=== PATIENT | male | born 1930 | race Caucasian/White ===

== ENCOUNTER 2016-04-08 23:24 | Inpatient (IN) | payer MEDICARE ==
[~2016-04-08] VITALS: Ht 162.6 cm; Wt 71.3 kg
[2016-04-09 00:08] LABS: APTT 27.9 SECONDS (22.8-39.4); INR 1.13 (0.85-1.17); PROTIME 14.4 SECONDS (11.6-15.0)
[2016-04-09 00:10] LABS: BASOPHILS 0.8 % (0.0-2.0); EOSINOPHILS 3.6 % (0-7); HEMATOCRIT 39.5 % (42.0-54.0); HEMOGLOBIN 12.5 g/dL (13.5-17.5); MCH 31.5 pg (26.0-34.0); MCHC 31.6 g/dL (31.0-37.0); MCV 99.5 fL (80.0-100.0); MEAN PLATELET VOLUME 11.4 fL (7.4-10.4); MONOCYTES 11.6 % (2-11); PLATELET COUNT 124 10x3/uL (130-400); RBC 3.97 10x6/uL (4.20-6.10); RDW 13.3 % (11.5-14.5)
[2016-04-09 00:15] LABS: ALBUMIN 3.5 g/dL (3.4-5.0); ALKALINE PHOSPHATASE 65 U/L (46-116); ALT (SGPT) 14 U/L (10-68); BILIRUBIN - TOTAL 0.43 mg/dL (0.2-1.3); CALC OSMOLALITY 284 mosm/kg (275-300); CALCIUM 9.4 mg/dL (8.5-10.1); CARBON DIOXIDE 31.3 mmol/L (21.0-32.0); CHLORIDE - SERUM 105 mmol/L (98-107); CREATININE - SERUM 1.2 mg/dL (0.6-1.3); GLUCOSE 89 mg/dL (74-106); PROTEIN - SERUM 7.3 g/dL (6.4-8.2); SODIUM 142 mmol/L (136-145); UREA NITROGEN 22 mg/dL (7-18); eGFR NON AFRICAN AMERICAN 61 mL/min (90-120)
[2016-04-09 00:22] LABS: AMYLASE - SERUM 50 U/L (25-115); CREATINE KINASE 53 UL (21-232); LIPASE 305 U/L (73-393); PRO BNP 2574 pg/mL (0-450)
[2016-04-09 00:23] LABS: TROPONIN-I < 0.017 ng/mL (0.000-0.060)
[2016-04-09 00:42] LABS: APPEARANCE CLEAR (CLEAR); BILIRUBIN NEGATIVE (NEGATIVE); COLOR YELLOW (YELLOW); GLUCOSE NEGATIVE (NEGATIVE); KETONE NEGATIVE (NEGATIVE); LEUKOCYTE ESTERASE NEGATIVE (NEGATIVE); NITRITE NEGATIVE (NEGATIVE); PROTEIN NEGATIVE (NEGATIVE); SPECIFIC GRAVITY 1.015 (1.005-1.020); UROBILINOGEN NORMAL (NORMAL)
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
[2016-04-09 05:43] VITALS: BP 136/75; BMI 27.0
[2016-04-09 06:32] LABS: BASOPHILS 0.5 % (0.0-2.0); EOSINOPHILS 3.6 % (0-7); HEMATOCRIT 37.2 % (42.0-54.0); LYMPHOCYTES 45.8 % (15-50); MCH 31.6 pg (26.0-34.0); MCHC 32.3 g/dL (31.0-37.0); MCV 97.9 fL (80.0-100.0); MEAN PLATELET VOLUME 10.7 fL (7.4-10.4); MONOCYTES 11.5 % (2-11); NEUTROPHILS 38.6 % (40-80); PLATELET COUNT 108 10x3/uL (130-400); RDW 13.2 % (11.5-14.5); WBC 3.9 10x3/uL (4.8-10.8)
[2016-04-09 06:49] LABS: HEMOGLOBIN A1C 5.3 % (4.8-6.0)
[2016-04-09] MEDS ORDERED: NAMENDA5 MG (06:53)
[2016-04-09] MEDS ORDERED: ELIQUIS2.5 MG (06:53)
[2016-04-09 06:55] LABS: CHOL - HDL RATIO 2.8 ratio (2.3-4.9); LDL-HDL RATIO 1.6 ratio (1.5-3.5); THYROID STIMULATING HORMONE 2.04 uIU/mL (0.36-3.74)
[2016-04-09 10:51] VITALS: BP 147/81
--- NOTE | 2016-04-09 16:18 | NUR ---
RECEIVED THIS AM IN BED.ASSISTED UP TO WHEELCHAIR AND TO BATHROOM.URINATED WITHOUT DIFFICULTY.PULL UP OBSERVED TO BE WET,CLEAN PULL UP PUT ON.IS ORIENTED TO SELF ONLY.ATTEMPT TO REORIENT TO TIME AND PLACE WITH POOR RESPONSE.NO SIGNS OF AGGRESSION OR EXIT SEEKING OBSERVED.WILL CONTINUE WITH PLAN OF CARE,MONITOR FOR CHANGES AND SAFETY.
--- NOTE | 2016-04-09 23:45 | NUR ---
PATIENT RECIEVED IN DINING ROOM, INTERACTING WITH PEER. ORIENTED TO PERSON AND TIME. PATIENT REORIENTED. HE DOESN'T UNDERSTAND WHY HE'S HERE. DENIES CONFUSION. PLEASANT, CALM AND COOPERATIVE. CONTINUE TO MONITOR, CONTINUE PLAN OF CARE.
[2016-04-10 08:12] VITALS: BP 153/74
[2016-04-10] MEDS ORDERED: ELIQUIS2.5 MG PO (14:24)
[2016-04-10] MEDS ORDERED: WELLBUTRIN XL150 M1 PO (14:24)
[2016-04-10] MEDS ORDERED: COREG12.5 MG PO (14:27)
--- NOTE | 2016-04-10 15:55 | NUR ---
RECEIVED THIS AM IN BED,ASSISTUP TO WHEELCHAIR PER ONE.IS ORIENTED TO SELF ONLY.COMPLIANT WITH MEDS AND STAFF.PROPELLS SELF IN WHEELCHAIR.NO AGGRESSION OBSERVED.WILL CONTINUE WITHPLAN OF CARE,MONITOR FOR CHANGES AND SFETY.
--- NOTE | 2016-04-10 20:21 | NUR ---
RECEIVED IN DAYROOM. SETTING IN CHAIR AT TABLE WATCHING TV. CALM AND COOPERATIVE WITH CARE AND ASSESSMENT. SOCIAL WITH A PEER AT TIMES. REORIENT NEEDED. REINFORCE FALLS SAFETY. CONTINUES TO SET QUIETLY IN WHEELCHAIR. CONTINUE PLAN OF CARE
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
[2016-04-10 21:45] VITALS: BP 128/75
[2016-04-11 06:14] LABS: RAPID PLASMA REAGIN Non Reactive (Non Reactive)
[2016-04-11 08:20] LABS: VITAMIN D 25 HYDROXY 42.7 ng/mL (30.0-100.0)
[2016-04-11 09:17] LABS: FOLATE (FOLIC ACID) - SERUM 18.4 ng/mL (>3.0)
[2016-04-11 09:21] VITALS: BP 137/61
[2016-04-11 10:40] VITALS: Ht 162.6 cm; Wt 71.3 kg
--- NOTE | 2016-04-11 15:38 | NUR ---
(B)RECEIVED PATIENT SITTING IN A CHAIR AT THE NURSE'S STATION. ORIENTED TO SELF ONLY. DELUSIONAL AND HAS FLIGHT OF IDEAS AND IS UNABLE TO COMPLETE A THOUGHT AEB "WHEN NIGHT NOW DEPENDS FOR THE TIME BROUGHT HERE. TWO MEN CAME TO THE HOUSE AND STARTED TALKING IMMEDIATELY. VERY NICE. CHECK ON PEOPLE AND CHECK ON OTHER'S HEALTH." BELIEVES HIS AND A FRIEND ARE COMING TO TAKE HIM HOME. CONFUSED. COOPETATIVE. (I)ADMINISTER MEDS AND MONITOR COMPLIANCE. REORIENT NEEDED. (R)MED COMPLIANT. POOR REORIENTATION DUE TO IMPAIRED ABILTIY TO COMPREHEND, PROCESS AND MAINTAIN INFORMATION. (P)CONTINUE POC AND MAINTAIN FALL PRECAUTIONS.
[2016-04-11 19:39] VITALS: BP 120/64
--- NOTE | 2016-04-11 20:21 | NUR ---
RECEIVED IN DAYROOM. SETTING IN WHEELCHAIR AT TABLE WITH STAFF AND PEERS.SOCIALIZING AT TIMES. CALM AND COOPERATIVE WITH CARE AND ASSESSMENTS. NO SIGNS OF AGGRESSION. CONTINUES TO SET QUIETLY AT TABLE WITH STAFF AND PEERS. CONTINUE PLAN OF CARE
[2016-04-12 08:00] VITALS: BP 114/58
--- NOTE | 2016-04-12 10:59 | PN ---
PATIENT:SCOTT MCKNIGHT MEDICAL RECORD: [id number] LOCATION:HIRAM Dawson ADMISSION DATE: 04/09/16 PROGRESS NOTE DATE OF SERVICE: 04/11/2016 SUBJECTIVE: No new complaint is noted. OBJECTIVE: The patient did undergo neuro psych neuropsychological testing. He scored only 9/30 on the [facility] Mental Status exam indicating a very significant level of dementia. He will need 24-hour daycare. On exam, mood is euthymic, affect is shallow. Speech is rambling and garrulous. Content of thought exhibits delusional ideation secondary to sensorium changes. Sensorium is unchanged overall. ASSESSMENT: No change in diagnosis. PLAN: 1. Maintain current medications. 2. Continue supportive therapy. TRANSINT:[id number] Voice Confirmation ID: [id number] DOCUMENT ID: [id number] SCOTT FLYNN III, MD at 1059 CC: [id number] DICTATION DATE: 04/11/16 1223 REAL ESTATE DEVELOPER: 04/11/16 2220 ADM IN [place] [address] [place] [id number]
--- NOTE | 2016-04-12 14:54 | NUR ---
RECEIVED THIS AM SITTING IN WHEELCHAIR IN HALLWAY AT NURSE STATION.IS ORIENTED TO SELF ONLY.NO AGGRESSION OBSERVED.COMPLIANT WITH MEDS.PROPELLS SELF IN WHEELCHAIR.SITS QUIETLY MOST OF THE TIME BUT DOES SOCIALIZE AT TIMES WITH PEERS.WILL CONTINUE WITH PLAN OF CARE,MONITOR FOR CHANGES AND SAFETY.
[2016-04-12 20:00] VITALS: BP 110/64
--- NOTE | 2016-04-13 03:45 | NUR ---
PATIENT IN WHEELCHAIR IN DAYROOM. ORIENTED TO SELF, AND HAS SOME CONFUSION ON SITUATION. PATIENT REORIENTED. VERY AMIABLE, FOLLOWS DIRECTIONS AND CALM. HASN'T ANY AGITATION. CONTINUE TO MONITOR, CONTINUE PLAN OF CARE
[2016-04-13 08:14] VITALS: BP 117/59
--- NOTE | 2016-04-13 09:00 | PN ---
PATIENT:SCOTT MCKNIGHT MEDICAL RECORD: [id number] LOCATION:HIRAM Dawson ADMISSION DATE: 04/09/16 PROGRESS NOTE DATE OF SERVICE: 04/12/2016 SUBJECTIVE: No new complaint. OBJECTIVE: The patient has shown improvement in behavior, representatives from [facility] have ____ decision on placement is pending. On exam, mood is euthymic. Affect is bland. Speech is tangential. Content of thought is negative for overt psychosis. Sensorium is unchanged. ASSESSMENT: No change in diagnosis. PLAN: 1. Continue current medications. 2. Continue supportive therapy. TRANSINT:[id number] Voice Confirmation ID: [id number] DOCUMENT ID: [id number] SCOTT FLYNN III, MD at 0900 CC: [id number] DICTATION DATE: 04/12/16 1204 CHILD DEVELOPMENT PROFESSOR: 04/12/16 1821 ADM IN [facility] [address] [place] [address]
--- NOTE | 2016-04-13 18:06 | NUR ---
(B)RECEIVED PATIENT SITTING IN A CHAIR AT THE NURSE'S STATION. ORIENTED TO SELF ONLY. POOR INSIGHT INTO THE REASON FOR HOSPITALIZATION. PREOCCUPIED WITH SEEING HIS AND THINKING HE IS GOING BACK HOME. SOCIAL WITH PEERS. CALM AND COOPERATIVE WITH STAFF. SHORT THERM MEMORY IMPAIRED RESULTING IN PATIENT ASKING THE SAME THINGS OVER OR REQUIRING INFORMATION BE REPEATED. (I)ADMINISTER MEDS AND MONITOR COMPLIANCE. REORIENT NEEDED. (R)MED COMPLIANT. POOR REORIENTATION DUE TO IMPAIRED ABILITY TO COMPREHEND, PROCESS AND MAINTAIN INFORMATION. (P)CONTINUE POC AND MAINTAIN FALL PRECAUTIONS.
[2016-04-13 19:30] VITALS: BP 133/83
--- NOTE | 2016-04-13 21:05 | NUR ---
B) Talked of how much he enjoyed his visit from his today. Thankful for staff and thankful for the nice ladies who are his peers here. Denies feeling depressed or angry, no aggression displayed. Noted to have fading bruise on back of left hand and dry skin on his scalp. Propels self around unit in wheelchair. I) Administer medications as ordered, redirect and reorient PRN. R) Confused, oriented to person, pleasant mood, compliant with medications. P) Continue to monitor per plan of care.
[2016-04-14 09:40] VITALS: BP 124/58
--- NOTE | 2016-04-14 11:20 | NUR ---
Alert and oriented to name and some what to place, has no insight to reason for hospitalization. Compliant with medications. Self propels in W/C, safety maintained. No delusions or inappropriate behavior. Calm, pleasant and cooperative. Continue with plan of care.
[2016-04-14 19:30] VITALS: BP 111/49
--- NOTE | 2016-04-15 02:48 | NUR ---
B) Recieved sitting in a wheelchair in the day room, alert and oriented to self, calm and cooperative with staff, I) Admionistered perscribed medications, redirected as needed, R) Medication compliant, friendly when spoken to, responds faye. P) Continue plan of care, continue to monitor.
[2016-04-15 08:00] VITALS: BP 117/56
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
[2016-04-15 19:30] VITALS: BP 127/70
--- NOTE | 2016-04-16 03:00 | NUR ---
B) Recieved sitting in a wheelchair in the day room, alert and oriented to self, speaks when spoken to, cooperative with staff, quiet and keeps to himself. I) Administered perscribed medications, R) Medication compliant, no behaviors or outburst this shift, P) Continue plan of care.
[2016-04-16 07:00] VITALS: BP 106/63
--- NOTE | 2016-04-16 18:42 | NUR ---
PT IS RECEIVED SITTING IN CHAIR IN [place] IN FRONT OF NURSE STATION. PT IS ALERT AND ORIENTED TO PERSON AND PLACE. PT DENIES PAIN. NO HALLUCINATIONS OR DELUSIONS ARE NOTED OR REPORTED. NO AGGRESSION IS NOTED. PT IS SOCIAL AND PLEASANT WITH STAFF AND PEERS. PT IS COMPLIANT WITH MED'S AND CARE. SAFETY MEASURES ARE IMPLEMENTED. CONTINUE WITH PLAN OF CARE. WILL CONTINUE TO MONITOR.
[2016-04-16 19:30] VITALS: BP 196/87
--- NOTE | 2016-04-16 20:38 | NUR ---
RECEIVED IN DAYROOM. SITTING IN WHEELCHAIR AT TABLE WITH STAFF AND PEERS AT HIS SIDE. NOT SOCIALIZING. NO SIGNS OF AGGRESSION. CALM AND COOPERATIVE WITH CARE AND ASSESSMENTS. ENCOURAGE TO EXPRESS NEEDS. REMAINS SITIING CALMLY IN WHEEL CHAIR. CONTINUE PLAN OF CARE
[2016-04-17 08:39] VITALS: BP 122/69
--- NOTE | 2016-04-17 08:56 | PN ---
PATIENT:SCOTT MCKNIGHT MEDICAL RECORD: [id number] LOCATION:HIRAM Dawson ADMISSION DATE: 04/09/16 PROGRESS NOTE DATE OF SERVICE: 04/13/2016 SUBJECTIVE: No new complaint. OBJECTIVE: The patient is continuing to tolerate medication well. Behavior has improved considerably. On exam, mood is euthymic. Affect is bland. Speech is tangential. Content of thought is negative for clear-cut psychosis. Sensorium shows no change. ASSESSMENT: No change in diagnosis. PLAN: 1. Maintain current medications. 2. Continue supportive therapy. TRANSINT:[id number] Voice Confirmation ID: [id number] DOCUMENT ID: [id number] SCOTT FLYNN III, MD at 0856 CC: [id number] DICTATION DATE: 04/13/16 1142 TOWNSHIP CLERK: 04/13/16 1904 ADM IN [facility] [address] [place] [address]
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
[2016-04-17] MEDS ORDERED: TRAVATAN 0.004% EACH EYE (12:15)
[2016-04-17] MEDS ORDERED: EYE EACH EYE (12:15)
[2016-04-17] MEDS ORDERED: TRUSOPT 2 % OPT10 ML EACH EYE (12:15)
--- NOTE | 2016-04-17 13:41 | PN ---
PATIENT:SCOTT MCKNIGHT MEDICAL RECORD: [id number] LOCATION:HIRAM Hannah112 ADMISSION DATE: 04/09/16 PROGRESS NOTE DATE OF SERVICE: 04/14/2016 SUBJECTIVE: The patient's case was discussed with staff. He has no new complaint. OBJECTIVE: The patient is in good behavioral control with limited insight about his condition. He has not been aggressive today. ASSESSMENT: No change in diagnoses. PLAN: The patient will be maintained on current medicines and therapies. His long-term prognosis is guarded. TRANSINT:[id number] Voice Confirmation ID: [id number] DOCUMENT ID: [id number] DANA FUENTES MD at 1341 CC: [id number] DICTATION DATE: 04/14/16 1411 ADVERTISING SALES CONSULTANT: 04/14/16 2040 ADM IN [place] [address] [place] [address]
--- NOTE | 2016-04-17 13:58 | NUR ---
SW SPOKE WITH PT'S , MAGALI, ABOUT DISCHARGE PLANS FOR TOMORROW. SW STATED RN WOULD GO OVER MEDICATION REGIMEN WITH DISCHARGE PAPERWORK. MAGALI STATED SHE DID NOT WANT RUTH AT HOME BECAUSE PT RECIEVES OUTPATIENT THERAPY AT [facility]. SHE STATED SHE WOULD CALL AND NOTIFY STAFF HE IS BEING DISCHARGED WHEN SW ALSO TO DO SO. PT'S PCP IS DR. PERALTA AND [facility] IS HIS PHARMACY. PT'S STATED SHE WOULD PICK HIM UP BETWEEN 4 AND 430 DUE TO APPOINTMENT SHE HAS AT THE HOSPITAL BEING AT 3. PT'S VERBALIZED UNDERSTANDING AND APPRECIATION OF SERVICES.
[2016-04-17 19:20] VITALS: BP 127/66
--- NOTE | 2016-04-17 19:56 | NUR ---
RECEIVED IN DAYROOM. SITTING IN WHEELCHAIR WITH PEERS AT HIS SIDE. SOCIALIZING AT TIMES. CALM AND COOPERATIVE WITH CARE AND ASSESSMENTS. NO SIGNS OF AGGRESSION. ENCOURAGE TO EXPRESS NEEDS. CONTINUES TO EXPRESS NEEDS. CONTINUE PLAN OF CARE
[2016-04-18 08:38] VITALS: BP 113/66
--- NOTE | 2016-04-18 09:57 | NUR ---
Nutrition Follow Up: Chart reviewed. Pt is eating 71% meal avg on a Regular diet. +BM 04/10/16 - no BM x 8 days. No new wt, labs to assess. Meds noted. Pt with good po intake at this time. Rec continue current diet. Rec consider bowel regimen as pt has not had BM in [address] following.
--- NOTE | 2016-04-18 10:30 | NUR ---
Alert and oriented to name and some what to place. Has no insight to reason for hospitalization. Taught on discharge back home today. Verbalized understanding. No aggression or delusions. Calm and pleasant in good behavior control. Discharge information faxed to Alex at home and Dr. Dean office with appointment made for follow up. Compliant with medications. Continuw with plans to discharge today.
--- NOTE | 2016-04-18 15:40 | NUR ---
Patient ready for discharge, discharge instructions given to spouse as well as paper prescription for Namenda. Verbalized understanding. Patient discharged.
--- NOTE | 2016-04-19 10:02 | PN ---
PATIENT:SCOTT MCKNIGHT MEDICAL RECORD: [id number] LOCATION:HIRAM Hannah112 ADMISSION DATE: 04/09/16 PROGRESS NOTE DATE OF SERVICE: 04/17/2016 SUBJECTIVE: No new complaint. OBJECTIVE: The patient continues to be cooperative and quiet. Case management has been in contact with his , who does wish to have him come home. We will be making a recommendation for home health to assist the patient at home. The patient's is aware that the patient has been evaluated by [facility]. On exam, mood is pleasant and for the most part euthymic. Affect is bland. Speech is rather tangential. Content of thought is negative for overt psychosis. Sensorium shows no change. ASSESSMENT: No change in diagnosis. PLAN: 1. Maintain all current medications. 2. Anticipate discharge tomorrow morning. TRANSINT:[id number] Voice Confirmation ID: [id number] DOCUMENT ID: [id number] SCOTT FLYNN III, MD at 1002 CC: [id number] DICTATION DATE: 04/17/16 1212 MOTION DESIGNER: 04/17/16 1851 DIS IN 04/18/16 [facility] [address] [place] [id number]
--- NOTE | 2016-04-19 16:33 | PN ---
PATIENT:SCOTT MCKNIGHT MEDICAL RECORD: [id number] LOCATION:HIRAM HannahNancy ADMISSION DATE: 04/09/16 PROGRESS NOTE DATE OF SERVICE: 04/18/2016 SUBJECTIVE: The patient's case was discussed with staff. He has no new complaint. OBJECTIVE: The patient is in good behavioral control with limited insight about his condition. He tolerates his medicines well. ASSESSMENT: No change in diagnoses. PLAN: Current medicines and therapies have been reviewed and will be maintained. Long-term prognosis is guarded. TRANSINT:[id number] Voice Confirmation ID: [id number] DOCUMENT ID: [id number] DANA FUENTES MD at 1633 CC: [id number] DICTATION DATE: 04/18/16 1519 NAIL GALVANIZER: 04/18/16 1856 DIS IN 04/18/16 [facility] [address] [place] [address]
--- NOTE | 2016-04-20 09:59 | DS ---
PATIENT:SCOTT MCKNIGHT :28 MEDICAL RECORD: [id number] DISCHARGE SUMMARY ADMISSION DATE: 04/09/16 DISCHARGE DATE: 04/18/16 DATE OF ADMISSION: 04/09/2016 DATE OF DISCHARGE: 04/18/2016 HISTORY: First custodial admission for this 85-year-old white male. This patient was brought from [place]. He had been showing increasing confusion and agitation over the last several weeks. The patient's had become frightened about his behavior. Because of worsening cognition and agitated and occasionally aggressive behavior the patient was admitted. For further details, please see previously dictated history. COURSE IN THE HOSPITAL: The patient was seen in consultation by Dr. Pelayo who noted the presence of hypertension and history of cardiac arrhythmias. The patient was treated fairly conservatively. During the course of the hospitalization, he was treated with Zoloft 25 mg daily (this was previous medication), Coreg 12.5 mg daily, Eliquis 2.5 mg b.i.d., travoprost eye drops, Namenda 10 mg b.i.d. The patient did well over the course of the hospitalization, he showed a good resolution of his agitation and delusional ideation abated by the time of discharge. The patient was felt to be stable enough to return to the home environment with home health assistance. FINAL DIAGNOSES: AXIS I: Vascular dementia. AXIS II: No diagnosis. AXIS III: Hypertension, cardiac arrhythmias. AXIS IV: Moderate. AXIS V: 40. PLAN: 1. The patient is discharged on current medications. 2. Diet and activities as tolerated. 3. Follow up with home health and through primary care physician. TRANSINT:[id number] Voice Confirmation ID: [id number] DOCUMENT ID: [id number] SCOTT FLYNN III, MD at 0959 CC: [id number] DICTATION DATE: 04/19/16 1048 IN FILE OPERATOR: 04/20/16 0227 DIS IN 04/18/[address] [address]
== END 2016-04-18 15:40 | disposition home or self-care (01) | DRG 884 ==
LOC: D.ER 23:24 → D.PSYCH 04-09 01:57
PROVIDERS: Family Medicine; ADMIT Psychiatry & Neurology Psychiatry
DX: F03.91 Unspecified dementia, unspecified severity, with behavioral disturbance (principal); I10 Essential (primary) hypertension; Z95.0 Presence of cardiac pacemaker; Z91.81 History of falling

== ENCOUNTER 2016-07-29 17:06 | Inpatient (IN) | payer MEDICARE ==
[~2016-07-29] VITALS: Ht 170.2 cm; Wt 74.8 kg
--- NOTE | ~2016-07-29 | OP ---
PATIENT NAME: SCOTT MCKNIGHT MEDICAL RECORD: [id number] :28 LOCATION:D.MS Hannah2238 ADMISSION DATE:07/31/16 SURGEON: TOMAS HARRELL MD DATE OF OPERATION: 08/04/2016 PREOPERATIVE DIAGNOSES: 1. Acute kidney injury. 2. Congestive heart failure. 3. Fever of unknown origin. 4. Hypertension. 5. Cardiac arrhythmia. 6. Advanced dementia. 7. Diminished p.o. intake. POSTOPERATIVE DIAGNOSES: 1. Acute kidney injury. 2. Congestive heart failure. 3. Fever of unknown origin. 4. Hypertension. 5. Cardiac arrhythmia. 6. Advanced dementia. 7. Diminished p.o. intake. PROCEDURE: PEG tube placement. SURGEON: Tomas Harrell MD REPORT OF PROCEDURE: An Olympus endoscope was advanced through the mouth and esophagus. We found the area on the antrum of the stomach to house our PEG tube. The stomach was then prepped with Betadine ointment. A total of 5 cc of 1% lidocaine with epinephrine was infused into the surrounding tissues. A skin incision was then made with an 11 blade. An Angiocath needle was inserted through the abdominal wall into the gastric lumen. A wire was advanced through this Angiocath and grasped with the snare. This wire was pulled through the mouth and esophagus and affixed to the PEG tube. This PEG tube was pulled through the mouth and esophagus and through the abdominal wall until it rested in good position at 3 cm at the skin. The endoscope was readvanced into the stomach and was noted to be in good position in the antrum of the stomach with no sign of any bleeding. This PEG tube was affixed into position. COMPLICATIONS: None. CONDITION: Stable. ANESTHESIA: TIVA. BLOOD LOSS: Minimal. TRANSINT:[id number] Voice Confirmation ID: [id number] DOCUMENT ID: [id number] OPERATIVE REPORT [id number] SCOTT MCKNIGHT TOMAS HARRELL MD CC: [id number] DICTATION DATE: 08/04/16924 SOAKER SODA WORKER: 08/04/16 1702 ADM IN [facility] [address] [place] [address]
--- NOTE | ~2016-07-29 | EC ---
PATIENT:SCOTT MCKNIGHT DATE OF SERVICE: 07/29/16 SEX: M MEDICAL RECORD: [id number] DATE OF : 29 LOCATION:D.MS Melara AGE OF PATIENT: 85 ADMISSION DATE: 07/31/16 REFERRING PHYSICIAN: INTERPRETING PHYSICIAN: ERICA HAIDER MD ECHOCARDIOGRAM REPORT ECHO CHARGES 4 ECHO COMPLETE CLINICAL DIAGNOSIS: POSSIBLE CHF ECHOCARDIOGRAPHIC MEASUREMENTS (adult normal given) AC root (d.<3.7cm) 3.4 LV Septum d (<1.2 cm> 1.3 Valve Excursion 2.2 LV Septum (systole) 1.9 Left Atria (s.<4.0cm> 3.3 LVPW d(<1.2cm) 1.6 RV (d.<2.3cm) 2.8 LVPW (sytole) 2.3 LV diastole(<5.6CM) 3.8 MV E-F(>70mm/sec) LV systole 2.3 LVOT Diameter 1.9 MV exc.(>10mm) Est.ejection fraction (50-75%) Pericardial Effusion N DOPPLER: LVIT A 34.0 E 70.0 LA RVSP 40.0 LVOT 80.0 AOP1/2T 1049. Asc. Ao 258 RVOT 73.0 RA PA 87.0 AV Gradient Peak 27.0 AV Mean 15.1 AV Area 0.8 MV Gradient Peak 3.0 MV Mean 1.0 MV Area COMMENTS: Grievance And Appeals Coordinator: Aidee WYLIEOE Global Transportation Manager:1 Dr. Haider TAPE# PACS DATE OF SERVICE: 07/31/2016 Echocardiogram FINDINGS: 1. Left ventricular chamber size is within normal limits. Left ventricular systolic function is mildly depressed. Overall ejection fraction is in the 40% range. There is mild global hypokinesis throughout all segments with no discrete wall motion abnormalities present. 2. Left atrium is within normal limits at 3.3 cm. Right atrium and right ECHOCARDIOGRAM REPORT [id number] SCOTT MCKNIGHT ventricle chamber sizes are mildly dilated. 3. Valvular structures: Aortic valve demonstrates moderate calcific aortic stenosis. Valve area calculates to 0.8 cm square and there is a gradient of 27 mm across the valve. The remaining valvular structures have normal structure and motion. 4. Doppler interrogation elsewise reveals moderate mitral regurgitation, moderate tricuspid regurgitation, no other valvular insufficiency or stenosis. Pulmonary systolic pressure is estimated at 40 mmHg. 5. No evidence of pericardial effusion or left ventricular thrombus. TRANSINT:[id number] Voice Confirmation ID: [id number] DOCUMENT ID: [id number] 08/09/2016 Edited to correct date of service, dmm. ERICA HAIDER MD CC: [id number] DICTATION DATE: 07/31/16 1142 WORKFORCE MANAGER: 07/31/16 1654 DIS IN 08/07/16 [place] [id number] [place] [id number]
[~2016-07-29 17:06] MED LIST: COREG12.5 MG PO; ELIQUIS2.5 MG; ELIQUIS2.5 MG PO; EYE EACH EYE; NAMENDA5 MG; TRAVATAN 0.004% EACH EYE; TRUSOPT 2 % OPT10 ML EACH EYE; WELLBUTRIN XL150 M1 PO
[2016-07-29 18:57] LABS: BASOPHILS 0.4 % (0-2); EOSINOPHILS 0.2 % (0-7); HEMATOCRIT 40.6 % (42.0-54.0); HEMOGLOBIN 13.1 g/dL (13.5-17.5); LYMPHOCYTES 21.5 % (15-50); MCH 32.3 pg (26.0-34.0); MCHC 32.3 g/dL (31.0-37.0); MCV 100.2 fL (80.0-100.0); MEAN PLATELET VOLUME 11.1 fL (7.4-10.4); MONOCYTES 8.4 % (2-11); NEUTROPHILS 69.5 % (40-80); PLATELET COUNT 121 10x3/uL (130-400); RBC 4.05 10x6/uL (4.20-6.10); RDW 13.1 % (11.5-14.5)
[2016-07-29 19:07] LABS: APPEARANCE CLEAR (CLEAR); BILIRUBIN NEGATIVE (NEGATIVE); COLOR YELLOW (YELLOW); GLUCOSE NEGATIVE (NEGATIVE); KETONE NEGATIVE (NEGATIVE); LEUKOCYTE ESTERASE NEGATIVE (NEGATIVE); NITRITE NEGATIVE (NEGATIVE); PROTEIN 1+ mg/dL (NEGATIVE); SPECIFIC GRAVITY 1.015 (1.005-1.020); UROBILINOGEN NORMAL (NORMAL)
[2016-07-29 19:11] LABS: ALBUMIN 3.5 g/dL (3.4-5.0); ANION GAP 12.9 mmol/L (8-16); BILIRUBIN - TOTAL 0.7 mg/dL (0.2-1.3); CALCIUM 8.7 mg/dL (8.5-10.1); CARBON DIOXIDE 29.6 mmol/L (21.0-32.0); CREATININE - SERUM 1.6 mg/dL (0.6-1.3); POTASSIUM - SERUM 4.5 mmol/L (3.5-5.1); PROTEIN - SERUM 7.3 g/dL (6.4-8.2)
[2016-07-29 19:14] LABS: BACTERIA FEW /hpf (NONE SEEN); EPITHELIAL CELLS 0-5 /hpf (0-5); MUCUS <1+ /lpf (NONE SEEN); RED CELLS - URINE 0-5 /hpf (0-5); WHITE CELLS - URINE 0-5 /hpf (0-5)
[2016-07-30] MEDS ORDERED: COLACE100 MG PO (00:49)
[2016-07-30] MEDS ORDERED: NAMENDA XR28 MG PO (00:51)
[2016-07-30] MEDS ORDERED: TRAVATAN Z2.5 ML EACH EYE (00:51)
[2016-07-30] MEDS ORDERED: BUPROPION XL150 MG PO (00:52)
[2016-07-30] MEDS ORDERED: SEROQUEL50 MG PO (00:53)
[2016-07-30 03:44] VITALS: BP 151/76; BMI 25.9
[2016-07-30 04:00] VITALS: BP 105/72
--- NOTE | 2016-07-30 07:00 | NUR ---
PT REC'D FROM [facility]. RESTING IN BED WITH EYES CLOSED. ALERT TO SELF ONLY. UNABLE TO REORIENT AT THIS TIME. LUNG SOUNDS TO L LOBES WITH CRACKLES THROUGHOUT. DIMINISHED TO RLL. BOWEL SOUNDS ACTIVE X4 QUADRANTS. +2 PEDAL PULSES BILAT. BED LOW, CALL LIGHT IN REACH, DENIES NEEDS. CPOC.
[2016-07-30 07:14] LABS: BASOPHILS 0.3 % (0-2); EOSINOPHILS 0.3 % (0-7); HEMATOCRIT 36.8 % (42.0-54.0); HEMOGLOBIN 12.2 g/dL (13.5-17.5); LYMPHOCYTES 24.8 % (15-50); MCH 32.4 pg (26.0-34.0); MCHC 33.2 g/dL (31.0-37.0); MEAN PLATELET VOLUME 11.2 fL (7.4-10.4); NEUTROPHILS 65.6 % (40-80); PLATELET COUNT 107 10x3/uL (130-400); RBC 3.76 10x6/uL (4.20-6.10)
[2016-07-30 07:15] LABS: MCV 97.9 fL (80.0-100.0)
[2016-07-30 08:42] VITALS: BP 141/73
--- NOTE | 2016-07-30 09:50 | NUR ---
PARTIAL BED BATH AND LINEN CHANGE PROVIDED DUE TO INCONTINENCE OF URINE. TO TURNED TO R SIDE. BED LOW, CALL LIGHT IN REACH, DENIES NEEDS. CPOC.
[2016-07-30 11:36] VITALS: BP 117/72
--- NOTE | 2016-07-30 11:54 | NUR ---
Received notice this am that Adult Protective Services had called when the patient was in the ER last pm. APS contact is Katy Stuart and her number is [phone]. Katy reports that the facility patient was in [facility] is going to be investigated due to the condition the patient was in when EMS arrived. Katy stated that the patient is in the Memory Care Unit there were reports of concerns. The [facility] will be addressing the Concerns with the facility. The patient is not on a hold by APS and can be discharged when medically stable where his wishes for him to be discharged to. Katy reports the patient can return to [facility] if his wants him to return there. [facility] will address concerns at facility if patient returns there or not. Katy wants to be called if patient is discharged today but Katy said if patient is discharged on Sunday than she does not need to be called. She is only tong setter this weekend and the patient's APS worker will be from [facility]. Cm will continue to follow and will assist as needed with dc plans/needs. Nichole Dias RN, [facility] [phone]
--- NOTE | 2016-07-30 12:44 | NUR ---
SITTING UP IN BED AFTER STAFF ASSISTED WITH EATING LUNCH. ORIENTED TO SELF. NO TEMP TODAY. LUNGS WITH CRACKLES THROUGHOUT. DENIES NEEDS.
[2016-07-30 17:30] VITALS: BP 148/76
--- NOTE | 2016-07-30 18:52 | NUR ---
PT WITH PRODUCTIVE COUGH, CRACKLES THROUGHOUT L LUNG, AND DIMINISHED TO RLL. CXR SHOWED POSSIBLE CHF. DR. GAMINO NOTIFIED. HE STATED, "THE ER DID NOT CALL ME ABOUT THIS PT." NEW ORDERS REC'D. DR. GAMINO REQUESTED GRINDER MILL OPERATOR, SANDRA HAWK. THIS WAS PROVIDED. IVF TO PT TURNED OFF AT THIS TIME.
--- NOTE | 2016-07-30 19:35 | NUR ---
RECIEVED SHIFT REPORT. PT IS LYING IN BED. PT IS ALERT TO SELF ONLY AT THIS TIME. IV IS PATENT AND FLUIDS ARE RUNNING PER ORDER. SCD'S ON. PT REQUIRES ASSISTANCE TURNING IN BED FOR COMFORT AND SKIN CARE. PT DENIES ANY PAIN AT THIS TIME. NO NEEDS ARE VERBALIZED AT THIS TIME. WILL CONTINUE TO MONITOR. SIDE RAILS ARE UP X 2. BED IS IN LOWEST POSITION. JUAN DAVID MAT IS ON FOR SAFETY. CALL LIGHT IS WITHIN REACH.
[2016-07-30 20:00] VITALS: BP 168/85
--- NOTE | 2016-07-30 21:00 | NUR ---
SHIFT ASSESSMENT COMPLETED. PT STATUS REMAINS UNCHANGED FROM PREVIOUS. PT CLEANED UP FROM INCONTINENT EPISODE. NO NEEDS VOICED. WILL MONITOR. SIDE RAILS X 2. BED LOW. JUAN DAVID MAT ON. CALL LIGHT IN REACH.
[2016-07-31] VITALS: BP 150/74
[2016-07-31 04:00] VITALS: BP 155/80
[2016-07-31 05:21] LABS: BASOPHILS 0.2 % (0-2); EOSINOPHILS 0 % (0-7); HEMATOCRIT 38.6 % (42.0-54.0); HEMOGLOBIN 12.8 g/dL (13.5-17.5); IMMATURE GRANULOCYTES 0.2 % (0-5); LYMPHOCYTES 22.1 % (15-50); MCH 32.2 pg (26.0-34.0); MCHC 33.2 g/dL (31.0-37.0); MCV 97.2 fL (80.0-100.0); MEAN PLATELET VOLUME 11.6 fL (7.4-10.4); MONOCYTES 11.4 % (2-11); NEUTROPHILS 66.1 % (40-80); PLATELET COUNT 113 10x3/uL (130-400); RBC 3.97 10x6/uL (4.20-6.10); RDW 12.7 % (11.5-14.5)
[2016-07-31 05:29] LABS: WBC 5.7 10x3/uL (4.8-10.8)
[2016-07-31 05:52] LABS: ALBUMIN 3.2 g/dL (3.4-5.0); ALKALINE PHOSPHATASE 72 U/L (46-116); ALT (SGPT) 15 U/L (10-68); BILIRUBIN - TOTAL 0.61 mg/dL (0.2-1.3); CALC OSMOLALITY 276 mosm/kg (275-300); CALCIUM 8.6 mg/dL (8.5-10.1); CARBON DIOXIDE 27.5 mmol/L (21.0-32.0); CHLORIDE - SERUM 97 mmol/L (98-107); CKMB 0.8 U/L (0.0-3.6); CREATININE - SERUM 1.4 mg/dL (0.6-1.3); GLUCOSE 119 mg/dL (74-106); POTASSIUM - SERUM 3.7 mmol/L (3.5-5.1); PRO BNP 13885 pg/mL (0-450); PROTEIN - SERUM 7.1 g/dL (6.4-8.2); SODIUM 136 mmol/L (136-145); UREA NITROGEN 23 mg/dL (7-18); eGFR NON AFRICAN AMERICAN 51 mL/min (90-120)
--- NOTE | 2016-07-31 07:00 | NUR ---
PT REC'D FROM KAYA DOSS. RESTING IN BED WITH EYES CLOSED. NO SIGNS OF DISTRESS. RESP EVEN AND UNLABORED. EASILY AROUSED. REGULAR HEART RATE AND RHYTHM. TELEMETRY STICKERS REPLACED. LUNG SOUNDS DIMINISHED TO RLL AND CRACKLES NOTED THROUGHOUT L LUNG. ALERT TO SELF ONLY. UNABLE TO REORIENT AT THIS TIME. BED LOW, CALL LIGHT IN REACH, DENIES NEEDS. CPOC.
[2016-07-31 07:10] VITALS: BP 143/79
--- NOTE | 2016-07-31 10:30 | NUR ---
INCONT CARE PROVIDED DUE TO INCONT. OF URINE. PT TURNED TO R SIDE. TOLERATED WELL. BED LOW, CALL LIGHT IN REACH, DENIES NEEDS. CPOC.
[2016-07-31 12:04] VITALS: BP 143/67
--- NOTE | 2016-07-31 12:59 | NUR ---
AT BEDSIDE PROVIDING MEAL ASSISTANCE. PT BECOMES MORE TALKATIVE WHEN IS PRESENT AND CAN IDENTIFY HER, BUT IS STILL ALERT TO HIMSELF AND NOT TIME, SITUATION, OR PLACE. BED LOW, CALL LIGHT IN REACH, ENSURE PROVIDED.
--- NOTE | 2016-07-31 13:55 | NUR ---
AT BEDSIDE. UPDATE PROVIDED. PT REPOSITIONED UPRIGHT. BED LOW, CALL LIGHT IN REACH, DENIES NEEDS. CPOC.
[2016-07-31 15:54] VITALS: BP 131/69
--- NOTE | 2016-07-31 16:22 | NUR ---
PARTIAL BED BATH AND LINEN CHANGE PROVIDED DUE TO INCONTINENCE. TURNED TO L SIDE. BED LOW, CALL LIGHT IN REACH, DENIES NEEDS. CPOC.
--- NOTE | 2016-07-31 18:43 | NUR ---
FLYER BUILDER NOTE- HAS BEEN AT BEDSIDE ALL DAY AND JUST LEFT FOR EVENING. JUAN DAVID ALARM ON AND ACTIVATED. CONFUSED TO PLACE AND TIME. HAS BEEN TURNED SEVERAL TIMES. CALL LIGHT IN REACH
--- NOTE | 2016-07-31 19:30 | NUR ---
RECIEVED SHIFT REPORT. PT IS LYING IN BED. PT IS ORIENTED TO SELF ONLY AT THIS TIME. IV IS PATENT AND FLUIDS ARE RUNNING PER ORDER. PT REQUIRES ASSISTANCE TURNING IN BED FOR COMFORT AND SKIN CARE. PT DENIES ANY PAIN AT THIS TIME. SCD'S ON. NO NEEDS ARE VOICED. WILL CONTINUE TO MONITOR. SIDE RAILS ARE UP X 2. BED IS IN LOWEST POSITION. JUAN DAVID ALARM IS ON FOR SAFETY. CALL LIGHT IS WITHIN REACH.
[2016-07-31 20:00] VITALS: BP 120/69
--- NOTE | 2016-07-31 20:15 | NUR ---
SHIFT ASSESSMENT COMPLETED. PT STATUS REMAINS UNCHANGED FROM PREVIOUS. NO NEEDS ARE VOICED. WILL MONITOR. SIDE RAILS X 2. BED LOW. JUAN DAVID ON. CALL LIGHT IN REACH.
--- NOTE | 2016-07-31 22:23 | NUR ---
TRANSPORTATION REFRIGERATION TECHNICIAN CALLED AND STATED PT HAD A LONG RUN OF V-TACH AND HAS HAD TORSADES TWICE. PT IS IN BED WITH NO SYMPTOMS AT THIS TIME. CALLED UTILITY WORKER FILM PROCESSING AND LET HER KNOW ABOUT SITUATION. UTILITY WORKER FILM PROCESSING ASKED WHAT PROGRESS NOTE SAID AND I TOLD HER THERE WAS A CARDIOLOGY CONSULT AND ECHO DONE. UTILITY WORKER FILM PROCESSING STATED THAT PT HAD DEFIBRILLATOR AND THAT WE SHOULD BE FINE AND JUST TO WATCH PT AND THAT SHE WOULD CALL TRANSPORTATION REFRIGERATION TECHNICIAN AND TELL HER TO "BACK OFF."
--- NOTE | 2016-08-01 00:15 | NUR ---
DRIVEWAY SEALER JUST CALLED AND STATED PT WENT INTO TORSADES AGAIN. PT IN BED WITH NO DISTRESS AND STATES HE FEELS FINE.
[2016-08-01 06:56] LABS: BASOPHILS 0 % (0-2); EOSINOPHILS 0 % (0-7); HEMATOCRIT 39.9 % (42.0-54.0); HEMOGLOBIN 13.4 g/dL (13.5-17.5); IMMATURE GRANULOCYTES 0.2 % (0-5); LYMPHOCYTES 24.7 % (15-50); MCHC 33.6 g/dL (31.0-37.0); MEAN PLATELET VOLUME 12.2 fL (7.4-10.4); MONOCYTES 11.6 % (2-11); NEUTROPHILS 63.5 % (40-80); PLATELET COUNT 117 10x3/uL (130-400); RBC 4.19 10x6/uL (4.20-6.10); RDW 12.7 % (11.5-14.5); WBC 5.2 10x3/uL (4.8-10.8)
--- NOTE | 2016-08-01 07:00 | NUR ---
PT REC'D FROM KAYA DOSS. RESTING IN BED LOOKING UP AT CEILING. PT REPOSITIONED TO HAVE HEAD TILTED SLIGHTLY FOREWARD. PT UNABLE TO VERBALIZE NAME, , TIME, PLACE, OR SITUATION. SCD'S ON. PIV TO L FA FREE OF REDNESS AND SWELLING. PT HAS FREQUENT COUGHING, BUT IS UNABLE TO COUGH UP SPUTUM. BED LOW, CALL LIGHT IN REACH, DENIES NEEDS. CPOC.
[2016-08-01 07:01] LABS: MCV 95.2 fL (80.0-100.0)
[2016-08-01 07:08] LABS: CALCIUM 8.3 mg/dL (8.5-10.1); CREATININE - SERUM 1.8 mg/dL (0.6-1.3); MAGNESIUM - SERUM 1.7 mg/dL (1.8-2.4); PHOSPHOROUS 2.8 mg/dL (2.5-4.9); THYROID STIMULATING HORMONE 1.73 uIU/mL (0.36-3.74)
[2016-08-01 08:21] VITALS: BP 140/79
--- NOTE | 2016-08-01 10:37 | NUR ---
PATIENT IN MID AMAYA POSITION RESTING QUIETLY WITH EYES CLOSED. RESPIRATIONS EVEN AND UNLABORED. SIDE RAILS UP X2. BED IN LOW POSITION. CALL LIGHT IN REACH.
--- NOTE | 2016-08-01 12:56 | NUR ---
LIGIA COLLAZO, FROM [facility]. UPDATE PROVIDED.
[2016-08-01 13:01] VITALS: BP 142/74
[2016-08-01 13:40] VITALS: Ht 170.2 cm; Wt 74.8 kg
[2016-08-01 16:10] VITALS: BP 147/68
--- NOTE | 2016-08-01 17:10 | NUR ---
PT STILL NOT COMMUNICATING WITH STAFF OR VERBALLY. COUGHING FREQUENTLY, BUT UNABLE TO EXPECTORATE SPUTUM. SUCTION SET UP AT BEDSIDE AT THIS TIME. IS CONCERNED ASKING, "IS THIS ALL I'M GONNA GET TODAY." EXPLAINED THAT WE WERE RUNNING TESTS TO TRY AND FIGURE OUT WHAT IS WRONG SO WE CAN DEVELOP A PLAN OF CARE. BED LOW, CALL LIGHT IN REACH, DENIES NEEDS. CPOC.
--- NOTE | 2016-08-01 19:40 | NUR ---
RECIEVED SHIFT REPORT. PT IS LYING IN BED. PT IS ALERT TO SELF ONLY. SCD'S ON. O2 @ 2 PER NASAL CANNULA. IV IS PATENT AND FLUIDS ARE RUNNING PER ORDER. PT DENIES ANY PAIN AT THIS TIME. PT REQUIRES ASSISTANCE TURNING IN BED FOR COMFORT AND SKIN CARE. NO NEEDS ARE VERBALIZED AT THIS TIME. WILL CONTINUE TO MONITOR. SIDE RAILS ARE UP X 2. BED IS IN LOWEST POSITION. JUAN DAVID MAT IS ON FOR SAFETY. CALL LIGHT IS WITHIN REACH.
[2016-08-01 20:00] VITALS: BP 132/68
--- NOTE | 2016-08-01 22:04 | NUR ---
SHIFT ASSESSMENT COMPLETED. NIGHT MEDS GIVEN WITH NO PROBLEMS. ADMINISTERED PRESCRIBED PRN TYLENOL FOR [id number] AND WILL MONITOR. SIDE RAILS X 2. BED LOW. JUAN DAVID ON. CALL LIGHT IN REACH.
[2016-08-02] VITALS: BP 128/66
[2016-08-02 04:00] VITALS: BP 133/70
[2016-08-02 06:15] LABS: BASOPHILS 0.2 % (0-2); EOSINOPHILS 0.2 % (0-7); HEMATOCRIT 40.3 % (42.0-54.0); HEMOGLOBIN 13.8 g/dL (13.5-17.5); IMMATURE GRANULOCYTES 0.2 % (0-5); LYMPHOCYTES 17.7 % (15-50); MCH 32.3 pg (26.0-34.0); MCHC 34.2 g/dL (31.0-37.0); MCV 94.4 fL (80.0-100.0); MEAN PLATELET VOLUME 12.3 fL (7.4-10.4); MONOCYTES 9.6 % (2-11); NEUTROPHILS 72.1 % (40-80); PLATELET COUNT 102 10x3/uL (130-400); RBC 4.27 10x6/uL (4.20-6.10); RDW 12.7 % (11.5-14.5); WBC 4.8 10x3/uL (4.8-10.8)
[2016-08-02 06:23] LABS: APTT 29.1 SECONDS (22.8-39.4)
[2016-08-02 06:24] LABS: D-DIMER-QUANTITATIVE 2.85 ug/mLFEU (0.20-0.54); INR 1.14 (0.85-1.17); PROTIME 14.5 SECONDS (11.6-15.0)
[2016-08-02 06:48] LABS: CALCIUM 8.4 mg/dL (8.5-10.1); CARBON DIOXIDE 27.2 mmol/L (21.0-32.0); CREATININE - SERUM 1.8 mg/dL (0.6-1.3); MAGNESIUM - SERUM 1.8 mg/dL (1.8-2.4); PHOSPHOROUS 2.4 mg/dL (2.5-4.9); POTASSIUM - SERUM 3.2 mmol/L (3.5-5.1)
[2016-08-02 07:45] LABS: ERYTHROCYTE SEDIMENTATION RATE 61 mm/hr (0-30)
[2016-08-02 10:05] VITALS: BP 133/27
[2016-08-02 11:36] VITALS: BP 108/65
--- NOTE | 2016-08-02 13:32 | NUR ---
18FR OLIVIA CATHETER INSERTED USING STERILE TECHNIQUE. IMMEDIATE RETURN OF CLOUDY YELLOW URINE. APPROXIMATELY 150CC'S. URINE SAMPLE COLLECTED FROM PORT AND SENT TO LAB. PT TOLERATED WELL. BED LOW, CALL LIGHT IN REACH, DENIES NEEDS. CPOC.
[2016-08-02 14:07] LABS: AMORPHOUS SEDIMENT >1+ /lpf (NONE SEEN); APPEARANCE SLT CLOUDY (CLEAR); BACTERIA MODERATE /hpf (NONE SEEN); BILIRUBIN NEGATIVE (NEGATIVE); COLOR YELLOW (YELLOW); EPITHELIAL CELLS 0-5 /hpf (0-5); GLUCOSE NEGATIVE (NEGATIVE); GRANULAR CAST OCC /lpf (NONE SEEN); HYALINE CAST OCC /lpf (NONE SEEN); KETONE NEGATIVE (NEGATIVE); LEUKOCYTE ESTERASE NEGATIVE (NEGATIVE); MUCUS <1+ /lpf (NONE SEEN); NITRITE NEGATIVE (NEGATIVE); PROTEIN 1+ mg/dL (NEGATIVE); RED CELLS - URINE 0-5 /hpf (0-5); SPECIFIC GRAVITY 1.015 (1.005-1.020); UROBILINOGEN NORMAL (NORMAL)
--- NOTE | 2016-08-02 15:51 | NUR ---
Patient Name: SCOTT MCKNIGHT Admission Status: ER Accout number: [id number] Admission Date: 07-31-2016 : 1930 Admission Diagnosis: Attending: BAUTISTA Current LOS: 2 Anticipated DC Date: 08-04-2016 Planned Disposition: Senior Living Facility Primary Insurance: MEDICARE A & B Discharge Planning Comments: CM MET WITH (MAGALI) REGARDING PATIENT D/C NEEDS AND PLANS. PATIENT WAS PREVIOUSLY AT [facility] AND DOES NOT WANT HIM TO GO BACK THERE. PATIENT IS JUST SITTING IN BED AND NOT SAYING ANYTHING. PATIENT IS TOTALLY DEPENDENT FOR HIS CARE. ALTHOUGH HE WOULD PUSH HIMSELF IN WHEELCHAIR BEFORE THIS VISIT. PATIENTS PCP IS DR. PERALTA AND PHARMACY IS [facility] AT [facility]. PATIENTS SIGNED THE SAVANA FORM WITH [facility] AND 2ND CHOICE IS [facility]. CM WILL CONTINUE TO FOLLOW PATIENT WITH D/C NEEDS AND PLANS. PCP DR. PERALTA [facility] [phone] MAGALI () [phone] Otr Refrigerated Cdl Truck Driver: Ryann Peterson Is the patient Alert and Oriented? No 0 * How many steps to enter\exit or inside your home? 0 0 * PCP DR. PERALTA 0 * Pharmacy [facility] 0 * Preadmission Environment Assisted Living 0 * Facility Name [facility] 0 * ADLs Total Dependent 0 * Equipment Wheelchair 0 * Other Equipment FACILITY HAS EQUIPMENT 0 * List name and contact numbers for known caregivers / representatives who currently or will assist patient after discharge: MAGALI () [phone] 0 * Community resources currently utilized None 0 * Additional services required to return to the preadmission environment? Yes 0 * Can the patient safely return to the preadmission environment? No 0 * Has this patient been hospitalized within the prior 30 days at any hospital? No 0 Grand Total: 0
[2016-08-02 16:03] VITALS: BP 129/82
--- NOTE | 2016-08-02 17:10 | NUR ---
OT NOTE: PT COMPLETED POSITIONING TO DECREASE RISK OF SKIN BREAKDOWN. PT COMPLETED BUE AAROM FOR INCREASED I WITH ADLS AND BED MOB. PT COMPLETED SIMPLE GROOMING AND HYGIENE TASK WITH DEBI Dickinson THANK YOU, ANNA BRIAN/Nestor
--- NOTE | 2016-08-02 18:01 | NUR ---
DENIES NEEDS AT PRESENT. BED LOW CL IN REACH.
[2016-08-02 19:00] VITALS: BP 153/75
--- NOTE | 2016-08-02 20:00 | NUR ---
PT IS RESTING IN BED WITH EYES OPEN. PT MAKES EYE CONTACT WHEN SPOKEN TO, BUT NO OTHER COMMUNICATION NOTED. HOB LOWERED FROM 45 DEGREES TO 30 DEGREES. PT ASSISTED TO REPOSITION IN BED. IV INFUSING TO LFA WITHOUT DIFFICULTY. NO REDNESS OR EDEMA NOTED AT THE INSERTION STIE. OLIVIA CATH IS PATENT AND DRAINING TO A GRAVITY BAG. SCD'S ARE ON. TELEMETRY UNIT IS ON AND INTACT. SR'S ARE UP X 3 IN BED. CALL LIGHT AND BEDSIDE TABLE ARE WITHIN EASY REACH.
--- NOTE | 2016-08-02 21:23 | NUR ---
PT IS RESTING IN BED WITH EYES OPEN. NO ATTEMPT TO COMMUNICATE NOTED. NO ACUTE DISTRESS NOTED. PT. ASSISTED TO REPOSITION IN BED AT THIS TIME.
--- NOTE | 2016-08-02 23:20 | NUR ---
PT IS RESTING IN BED WITH EYES CLOSED. AWOKE WHEN REPOSITIONED IN BED. NO VERBAL COMMUNICATION NOTED.
--- NOTE | 2016-08-03 00:37 | NUR ---
PT IS RESTING QUIETLY IN BED WITH EYES CLOSED.
--- NOTE | 2016-08-03 01:48 | NUR ---
RN NOTE: PT RESTING IN LOW AMAYA'S POSITION WITH EYES CLOSED AND UNLABORED BREATHING. O2 IN USE AT 2L VIA NC. IV IN LEFT FA PATENT WITH D5 1/2 NS W/ 40 K INFUSING AT 30 ML / HR. OLIVIA CATHETER DRAINING TO GRAVITY WITY YELLOW URINE IN COLLECTION BAG. SCD'S IN USE ON BLE. WILL CONTINUE TO MONITOR FOR NEEDS. CALL LIGHT WITHIN REACH.
[2016-08-03 04:00] VITALS: BP 140/67
--- NOTE | 2016-08-03 04:00 | NUR ---
PT NOTED WITH A TEMP OF 102.1. MEDICATED WITH TYLENOL 1000 MG PO PER APR. PT DRANK 360CC H2O AND ATE A THING OF PUDDING. NO ATTEMPT TO COMMUNICATE NOTED.
--- NOTE | 2016-08-03 04:40 | NUR ---
TEMP IS 100.3 AT THIS TIME. WILL CONTINUE TO MONITOR.
--- NOTE | 2016-08-03 06:00 | NUR ---
PT IS RESTING IN BED WITH EYES CLOSED. NO ACUTE DISTRESS NOTED. AX TEMP AT THIS TIME IS 99.3.
[2016-08-03 06:15] LABS: ANION GAP 14.6 mmol/L (8-16); CALCIUM 8.7 mg/dL (8.5-10.1); CARBON DIOXIDE 24.9 mmol/L (21.0-32.0); CREATININE - SERUM 2.1 mg/dL (0.6-1.3); POTASSIUM - SERUM 3.5 mmol/L (3.5-5.1)
--- NOTE | 2016-08-03 08:11 | NUR ---
RESPONDS TO NAME ONLY. PATIENT IS NONVERBAL BUT LIPS ARE MOVING IN APPROPRIATE MANNER. LUNGS HAVE CRACKLES AND WHEEZES IN UPPER LOBES, NO COUGH NOTED. SKIN IS INTACT WITHOUT REDNESS. IV TO LEFT WRIST IS PATENT WITHOUT REDNESS AT INSERTION SITE. SCD'S IN PLACE. OLIVIA PATENT WITH DARK JM URINE. NO NEEDS NOTED.
[2016-08-03 08:42] VITALS: BP 127/55
--- NOTE | 2016-08-03 11:04 | NUR ---
REPOSTITIONED FOR COMFORT. NO NEEDS NOTED.
[2016-08-03 12:01] VITALS: BP 116/72
--- NOTE | 2016-08-03 12:15 | NUR ---
AT BEDSIDE. SPOKE WITH HER RE PATIENTS PRIOR BASELINE. LUNCH SERVED IN ROOM.
--- NOTE | 2016-08-03 14:30 | NUR ---
STATED HE REFUSED TO EAT HIS LUNCH. DENIES NEEDS. REFUSED TO TAKE MEDS AT THIS TIME. ALSO REFUSED TO ALLOW EYE DROPS. TRIED TO DISCUSS THIS WITH HIM BUT HE JUST CLAMPS HIS MOUTH SHUT. WILL MONITOR.
[2016-08-03 15:45] VITALS: BP 146/53
--- NOTE | 2016-08-03 19:42 | NUR ---
NO CHANGES NOTED. DR. BILLY ORDERED A SURGICAL CONSULT FOR PEG TUBE PLACEMENT AFTER TALKING WITH . NO NEEDS NOTED.
[2016-08-03 20:00] VITALS: BP 102/57
[2016-08-04 04:00] VITALS: BP 113/61
--- NOTE | 2016-08-04 05:11 | NUR ---
REC'D. CHGE. OF SHIFT EYES CLOSED RESP. DEEP AND EVEN.LYING ON RT. SIDE WILL CONTINUE TO MONITOR FOR ANY CHGES AND FOLLOW CURRENT PLAN OF CARE
[2016-08-04 06:24] LABS: BASOPHILS 0.4 % (0-2); EOSINOPHILS 3.3 % (0-7); HEMATOCRIT 38.5 % (42.0-54.0); HEMOGLOBIN 13.1 g/dL (13.5-17.5); IMMATURE GRANULOCYTES 0.4 % (0-5); MCH 32.2 pg (26.0-34.0); MCV 94.6 fL (80.0-100.0); MEAN PLATELET VOLUME 12.9 fL (7.4-10.4); MONOCYTES 11.4 % (2-11); NEUTROPHILS 59.5 % (40-80); RBC 4.07 10x6/uL (4.20-6.10); WBC 5.5 10x3/uL (4.8-10.8)
[2016-08-04 06:32] LABS: PLATELET COUNT 134 10x3/uL (130-400)
[2016-08-04 06:41] LABS: ANION GAP 14.6 mmol/L (8-16); CALCIUM 8.9 mg/dL (8.5-10.1); CARBON DIOXIDE 25.2 mmol/L (21.0-32.0); CREATININE - SERUM 2.5 mg/dL (0.6-1.3); POTASSIUM - SERUM 3.8 mmol/L (3.5-5.1)
[2016-08-04 07:09] LABS: APTT 26.3 SECONDS (22.8-39.4); INR 1.08 (0.85-1.17); PROTIME 13.9 SECONDS (11.6-15.0)
--- NOTE | 2016-08-04 07:30 | NUR ---
WILL NOT OPEN EYES THIS AM BUT STILL RESPONDS TO HIS NAME. LUNGS HAVE INSPIRATORY WHEEZES THROUGHOUT LUNG NUNEZ, OCCASSIONAL NON PRODUCTIVE COUGH NOTED. SKIN IS INTACT WITHOUT REDNESS. IV TO LEFT FOREARM IS PATENT WITHOUT REDNESS AT INSERTION SITE. OLIVIA PATENT WITH DARK JM URINE. NO NEEDS NOTED. NPO AT THIS TIME.
--- NOTE | 2016-08-04 08:15 | NUR ---
SPOKE WITH MRS MCKNIGHT ON PHONE FOR CONSENT ON PEG PLACEMENT. ALL QUESTIONS ANSWERED.
[2016-08-04 08:16] VITALS: BP 114/59
--- NOTE | 2016-08-04 08:30 | NUR ---
OFF UNIT VIA BED FOR PEG PLACEMENT.
--- NOTE | 2016-08-04 09:45 | NUR ---
RETURNED FROM PEG PLACEMENT. ABDOMINAL BINDER IN PLACE. POSITIONED IN BED FOR COMFORT.
[2016-08-04 12:11] VITALS: BP 98/55
--- NOTE | 2016-08-04 13:13 | NUR ---
NUTRITION MONITORING & EVAL CHART REVIEWED. TUBE FEEDS STARTED PER MD CONSULT. RD FOLLOWING
--- NOTE | 2016-08-04 15:41 | NUR ---
TUBE FEEDING INITIATED PER ORDERS. IN ROOM. ALL QUESTIONS ANSWERED.
[2016-08-04 16:07] VITALS: BP 108/58
--- NOTE | 2016-08-04 18:27 | NUR ---
DAUGHTER CAME IN TO SEE PATIENT AND GOT NO RESPONSE. TF RUNNING WITHOUT COMPLICATIONS VIA PUMP. HOB UP 40 DEGREES. NO CHANGES NOTED.
[2016-08-04 20:00] VITALS: BP 132/64
[2016-08-05] VITALS: BP 117/66
--- NOTE | 2016-08-05 03:59 | NUR ---
PT IS ASLEEP WITH ESY RESPIRATIONS AND NO DISTRESS NOTED. THE HOB IS AT 30 DEGREES WITH TUBE FEEDING INFUSING ORDERED. THE BED IS LOW, RAILS UP X'S 2 WITH THE CALL LIGHT AT HAND.
[2016-08-05 05:09] VITALS: BP 120/60
[2016-08-05 06:03] LABS: BASOPHILS 0.3 % (0-2); EOSINOPHILS 3.8 % (0-7); HEMATOCRIT 37.4 % (42.0-54.0); HEMOGLOBIN 12.4 g/dL (13.5-17.5); IMMATURE GRANULOCYTES 1.2 % (0-5); LYMPHOCYTES 17.7 % (15-50); MCH 31.8 pg (26.0-34.0); MCHC 33.2 g/dL (31.0-37.0); MCV 95.9 fL (80.0-100.0); MEAN PLATELET VOLUME 12.3 fL (7.4-10.4); MONOCYTES 12.2 % (2-11); NEUTROPHILS 64.8 % (40-80); RDW 13.3 % (11.5-14.5); WBC 5.8 10x3/uL (4.8-10.8)
[2016-08-05 06:06] LABS: PLATELET COUNT 161 10x3/uL (130-400)
[2016-08-05 06:24] LABS: ANION GAP 15.9 mmol/L (8-16); BILIRUBIN - TOTAL 0.68 mg/dL (0.2-1.3); CALCIUM 8.8 mg/dL (8.5-10.1); CARBON DIOXIDE 22.7 mmol/L (21.0-32.0); CREATININE - SERUM 2.4 mg/dL (0.6-1.3); POTASSIUM - SERUM 3.6 mmol/L (3.5-5.1); PROTEIN - SERUM 6.8 g/dL (6.4-8.2)
--- NOTE | 2016-08-05 08:30 | NUR ---
TUBE FEEDING RESIDUAL CHECKED AND 10ML AT THIS TIME. TUBE FEEDING INCREASED TO 40 ML/HR PER DIETARY RECOMENDATIONS.
[2016-08-05 09:14] VITALS: BP 115/60
--- NOTE | 2016-08-05 10:34 | NUR ---
SCHEDULED MEDICATIONS ADMINISTERD CRUSHED THROUGHT THE PEG TUBE AT THIS TIME. PT WILL OPEN EYES WITH SPEECH OR TACTILE STIMULATION, BUT WILL NOT VERBALLY RESPOND. TUBE FEEDING RESIDUAL CHECKED AND 10 ML REMAIN, WILL PROCEED WITH MEDICATIONS AND TUBE FEEDING. OLIVIA CARE PROVIDED WITH OLIVIA CARE WIPES. TURNED PT TO RIGHT SIDE AT THIS TIME. DOOR OPEN AND JUAN DAVID ALARM IN USE FOR FALL PRECAUTIONS. CALL LIGHT IN REACH, WILL CONTINUE TO MONITOR PT.
--- NOTE | 2016-08-05 11:55 | NUR ---
FAMILY AT BEDSIDE. PT REMAINS ON RIGHT SIDE. OXYGEN ON AND TELEMETRY LEADS REPLACED. CALL LIGHT IN REACH AND OLIVIA PATENT AND DRAINING TO GRAVITY. WILL CONTINUE WITH PLAN OF CARE.
[2016-08-05 12:20] VITALS: BP 134/67
[2016-08-05 15:58] VITALS: BP 122/59
--- NOTE | 2016-08-05 21:18 | NUR ---
LESS THAN 10CC RESIDUAL IN PEG, MEDS GIVEN PER MAR, FLUSHED WITH 50CC H20 BEFORE RESUMING FEED, MANISHA WELL
[2016-08-05 23:14] VITALS: BP 117/56
--- NOTE | 2016-08-06 00:35 | NUR ---
PEG RESIDUAL CHECK, LESS THAN 5 NOTED, FEED RATE INCREASED BY 10 PER ORDERS, NOW RUNNING AT 60ML/HR, TOLERATING WELL, KANGAROO BAG AND TUBING CHANGED
--- NOTE | 2016-08-06 01:33 | NUR ---
RESTING WITH EYES CLOSED, NO ACUTE DISTRESS NOTED, RESPOSITIONED IN BED, MANISHA WELL, FALL PRECAUTIONS IN PLACE, WILL CONTINUE TO MONITOR
[2016-08-06 04:00] VITALS: BP 118/59
[2016-08-06 07:08] LABS: BASOPHILS 0.3 % (0-2); EOSINOPHILS 3.6 % (0-7); HEMATOCRIT 35.7 % (42.0-54.0); HEMOGLOBIN 11.8 g/dL (13.5-17.5); IMMATURE GRANULOCYTES 2.5 % (0-5); LYMPHOCYTES 13.5 % (15-50); MCH 32.1 pg (26.0-34.0); MCHC 33.1 g/dL (31.0-37.0); MONOCYTES 10.7 % (2-11); NEUTROPHILS 69.4 % (40-80); PLATELET COUNT 181 10x3/uL (130-400); RBC 3.68 10x6/uL (4.20-6.10); RDW 13.4 % (11.5-14.5)
[2016-08-06 07:10] LABS: WBC 7.6 10x3/uL (4.8-10.8)
--- NOTE | 2016-08-06 07:15 | NUR ---
LYING SUPINE WITH EYES CLOSED. RESPIRATIONS EVEN AND NON LABORED WITH OXYGEN ON 2L VIA NC. TUBE FEEDINGS TO PEG TUBE WITH RESIDUAL 5ML AT THIS TIME. DOOR OPEN AND JUAN DAVID MAT ALARM IN USE FOR FALL PRECAUTIONS. OLIVIA PATENT AND DRAINING TO GRAVITY. CALL LIGHT IN REACH, WILL CONTINUE WITH PLAN OF CARE.
[2016-08-06 07:28] LABS: ALBUMIN 1.9 g/dL (3.4-5.0); ANION GAP 11.6 mmol/L (8-16); BILIRUBIN - TOTAL 0.59 mg/dL (0.2-1.3); CALCIUM 8.7 mg/dL (8.5-10.1); CARBON DIOXIDE 22.6 mmol/L (21.0-32.0); CREATININE - SERUM 1.9 mg/dL (0.6-1.3); POTASSIUM - SERUM 4.2 mmol/L (3.5-5.1); PROTEIN - SERUM 6.6 g/dL (6.4-8.2)
--- NOTE | 2016-08-06 08:14 | NUR ---
SCHEDULED MEDICATIONS ADMINISTERED CRUSHED IN PEG TUBE. RESIDUAL CHECKED AND 5ML. TUBE FEEDING INCREASED TO 70 ML/HR. TURNED TO RIGHT SIDE. OLIVIA CARE PROVIDED WITH OLIVIA CARE WIPES. DOOR REMAINS OPEN. CALL LIGHT IN REACH, WILL CONTINUE WITH PLAN OF CARE.
[2016-08-06 09:35] VITALS: BP 129/61
--- NOTE | 2016-08-06 10:30 | NUR ---
SCHEDULED FLORAJEN ADMINISTERED THROUGHT THE PEG TUBE AT THIS TIME. RESIDUAL 5ML AT THIS TIME. POSITIONED ON BACK AT THIS TIME. CALL LIGHT IN REACH, WILL CONTINUE WITH PLAN OF CARE.
[2016-08-06 16:27] VITALS: BP 120/60
--- NOTE | 2016-08-06 16:27 | NUR ---
TEMPERATURE 100.5 AT THIS TIME. BLANKETS REMOVED AND COLD AIR TURNED ON. WILL RE-CHECK TEMPERATURE.
--- NOTE | 2016-08-06 17:25 | NUR ---
TEMPERATURE CHECKED AND PT AFEBRILE. SEE FLOWSHEET.
[2016-08-06 18:22] VITALS: BP 120/62
--- NOTE | 2016-08-06 19:40 | NUR ---
ASSESSMENT COMPLETED, NO ACUTE DISTRESS NOTED, REPOSITIONED IN BED, KANGAROO PUMP INFUSING, OLIVIA DRAINING TO GRAVITY, SR'S UP, CL IN REACH, WILL MONITOR
[2016-08-06 20:00] VITALS: BP 128/63
--- NOTE | 2016-08-06 21:07 | NUR ---
MEDS GIVEN PER MAR VIA PEG TUBE,FLUSHED WITH 50CC H20, LESS THAN 5CC RESIDUAL NOTED BEFORE AND AFTER, REPOSITIONED IN BED, SR'S UP, CL IN REACH, DOOR OPEN
--- NOTE | 2016-08-06 23:41 | NUR ---
RESTING WITH EYES CLOSED, NO DISTRESS NOTED, REPOSITONED IN BED, FALL PRECAUTIONS IN PLACE
--- NOTE | 2016-08-07 00:50 | NUR ---
PEG CHECKED, LESS THAN 5CC RESIDUAL, FLUSHED WITH 50CC H20, KANGAROO BAG AND TUBING CHANGED, MANISHA WELL, NO DISTRESS NOTED, FALL PRECAUTIONS IN PLACE
--- NOTE | 2016-08-07 01:50 | NUR ---
REPOSITIONED IN BED, NO DISTRESS NOTED, WILL CONTINUE TO MONITOR
[2016-08-07 04:00] VITALS: BP 118/62
[2016-08-07 06:42] LABS: BASOPHILS 0.3 % (0-2); EOSINOPHILS 3.8 % (0-7); HEMATOCRIT 35.6 % (42.0-54.0); HEMOGLOBIN 11.4 g/dL (13.5-17.5); IMMATURE GRANULOCYTES 5.5 % (0-5); LYMPHOCYTES 12.3 % (15-50); MCH 31.7 pg (26.0-34.0); MCV 98.9 fL (80.0-100.0); MEAN PLATELET VOLUME 11.6 fL (7.4-10.4); NEUTROPHILS 68.1 % (40-80); PLATELET COUNT 203 10x3/uL (130-400); RDW 13.6 % (11.5-14.5)
[2016-08-07 07:09] LABS: ALBUMIN 1.9 g/dL (3.4-5.0); ANION GAP 12.8 mmol/L (8-16); BILIRUBIN - TOTAL 0.5 mg/dL (0.2-1.3); CALCIUM 8.4 mg/dL (8.5-10.1); CARBON DIOXIDE 23.7 mmol/L (21.0-32.0); CREATININE - SERUM 1.7 mg/dL (0.6-1.3); POTASSIUM - SERUM 4.5 mmol/L (3.5-5.1); PROTEIN - SERUM 6.5 g/dL (6.4-8.2)
[2016-08-07 08:25] VITALS: BP 149/66
--- NOTE | 2016-08-07 09:30 | NUR ---
AROUSES TO VERBAL STIMULATION. NON VERBAL TODAY. LUNGS HAVE INSPIRATORY WHEEZES NOTED IN BILATERAL UPPER LOBES. NON PRODUCTIVE COUGH NOTED. ATTEMPTED TO SUCTION WITH YONKERS AND PATIENT CLAMPED MOUTH SHUT. HE DID ALLOW SOME ORAL CARE PER STAFF. SKIN IS INTACT WITHOUT REDNESS. PEG PATENT WITH OSMOLITE 1.0 INFUSING VIA PUMP AT 70CC HOUR. HOB UP 35 DEGREES. OLIVIA PATENT WITH LIGHT TEA COLORED URINE. IV TO LEFT FOREARM PATENT. NO NEEDS NOTED. MEDS GIVEN VIA PEG WITHOUT DIFFICULTY.
[2016-08-07] MEDS ORDERED: ROBITUSSIN DM 110 ML PO (09:57)
[2016-08-07] MEDS ORDERED: TESSALON PERLE100 MG PO (09:57)
[2016-08-07] MEDS ORDERED: FLORAJEN3 CAPS460 MG PO (09:58)
[2016-08-07] MEDS ORDERED: IPRAT-ALBUT 0.5-3 ML UPD (10:00)
[2016-08-07] MEDS ORDERED: CEFTIN250 MG/5 M PO (10:03)
--- NOTE | 2016-08-07 10:28 | NUR ---
CM REASSESSMENT NOTE: PATIENT IS DISCHARGING TODAY TO [facility] BY FACILITY VAN TO A SKILLED BED. (MAGALI) HAS BEEN NOTIFIED.
--- NOTE | 2016-08-07 11:45 | NUR ---
DISCHARGED TO [facility]. AWARE OF DISCHARGE. REPORT CALLED TO ALIYAH FLYNN LPN AT SAME. ALL QUESTIONS ANSWERED.
[2016-08-07] MEDS ORDERED: CEFUROXIME250 MG PO (11:55)
== END 2016-08-07 11:45 | DRG 291 ==
LOC: D.ER 17:06 → D.MS 23:24 → OBSVTIME 23:24 → D.MS 07-31 19:55
PROVIDERS: Emergency Medicine; Family Medicine; Internal Medicine Pulmonary Disease; ADMIT Family Medicine Adult Medicine
PROC: 0T9B70Z Drainage of Bladder with Drainage Device, Via Natural or Artificial Opening (ICD-10-PCS; principal; 2016-08-02)
PROC: 0DH63UZ Insertion of Feeding Device into Stomach, Percutaneous Approach (ICD-10-PCS; 2016-08-04)
DX: I13.0 Hypertensive heart and chronic kidney disease with heart failure and stage 1 through stage 4 chronic kidney disease, or unspecified chronic kidney disease (principal); I50.23 Acute on chronic systolic (congestive) heart failure; S32.491A Other specified fracture of right acetabulum, initial encounter for closed fracture; G93.41 Metabolic encephalopathy; J18.9 Pneumonia, unspecified organism; I47.2 Ventricular tachycardia; N17.9 Acute kidney failure, unspecified; E87.1 Hypo-osmolality and hyponatremia; J98.11 Atelectasis; E46 Unspecified protein-calorie malnutrition; N18.9 Chronic kidney disease, unspecified; F01.50 Vascular dementia, unspecified severity, without behavioral disturbance, psychotic disturbance, mood disturbance, and anxiety; Z79.02 Long term (current) use of antithrombotics/antiplatelets; X58.XXXA Exposure to other specified factors, initial encounter; D69.6 Thrombocytopenia, unspecified; I12.9 Hypertensive chronic kidney disease with stage 1 through stage 4 chronic kidney disease, or unspecified chronic kidney disease; I08.3 Combined rheumatic disorders of mitral, aortic and tricuspid valves; I27.2 Other secondary pulmonary hypertension; Z95.810 Presence of automatic (implantable) cardiac defibrillator; E83.51 Hypocalcemia; E83.39 Other disorders of phosphorus metabolism; J47.9 Bronchiectasis, uncomplicated; N40.0 Benign prostatic hyperplasia without lower urinary tract symptoms; D64.9 Anemia, unspecified; E87.6 Hypokalemia; E88.09 Other disorders of plasma-protein metabolism, not elsewhere classified; Z68.25 Body mass index [BMI] 25.0-25.9, adult

== ENCOUNTER → 2016-08-22 10:50 | Outpatient (CLI) | payer MEDICARE ==
[2016-08-01 13:40] VITALS: BMI 25.8
[~2016-08-22 10:50] MED LIST changes: +BUPROPION XL150 MG PO; +CEFTIN250 MG/5 M PO; +CEFUROXIME250 MG PO; +COLACE100 MG PO; +FLORAJEN3 CAPS460 MG PO; +IPRAT-ALBUT 0.5-3 ML UPD; +NAMENDA XR28 MG PO; +ROBITUSSIN DM 110 ML PO; +SEROQUEL50 MG PO; +TESSALON PERLE100 MG PO; +TRAVATAN Z2.5 ML EACH EYE
== END | disposition home or self-care (01) ==
LOC: D.RAD 10:50
DX: S72.001A Fracture of unspecified part of neck of right femur, initial encounter for closed fracture (principal); X58.XXXA Exposure to other specified factors, initial encounter; Y93.89 Activity, other specified; Y92.89 Other specified places as the place of occurrence of the external cause

== ENCOUNTER 2017-02-13 14:23 | Inpatient (IN) | payer MEDICARE ==
[~2017-02-13] VITALS: Ht 170.2 cm; Wt 82.3 kg
--- NOTE | ~2017-02-13 | EC ---
PATIENT:SCOTT MCKNIGHT DATE OF SERVICE: 02/13/17 SEX: M MEDICAL RECORD: [id number] DATE OF : [birth year] LOCATION:D.M2 D.211 AGE OF PATIENT: 86 ADMISSION DATE: 02/13/17 REFERRING PHYSICIAN: INTERPRETING PHYSICIAN: DAE DAVIS MD ECHOCARDIOGRAM REPORT ECHO CHARGES 4 ECHO COMPLETE CLINICAL DIAGNOSIS: CHF ECHOCARDIOGRAPHIC MEASUREMENTS (adult normal given) AC root (d.<3.7cm) 3.3 cm LV Septum d (<1.2 cm> 1.5 cm Valve Excursion 2.0 cm LV Septum (systole) 2.2 cm Left Atria (s.<4.0cm> 3.2 cm LVPW d(<1.2cm) 1.4 cm RV (d.<2.3cm) 2.8 cm LVPW (sytole) 2.1 cm LV diastole(<5.6CM) 4.2 cm MV E-F(>70mm/sec) cm LV systole 2.2 cm LVOT Diameter 1.9 cm MV exc.(>10mm) cm Est.ejection fraction (50-75%) % Pericardial Effusion N DOPPLER: LVIT cm/sec A 36.0 cm/sec E 69.0 cm/sec LA cm/sec RVSP 54.0 mmHg LVOT 92.0 cm/sec AOP1/2T m/s Asc. Ao 246 cm/sec RVOT 65.0 cm/sec RA cm/sec PA 83.0 cm/sec AV Gradient Peak 24.2 mmHg AV Mean 12.0 mmHg AV Area 0.9 cm MV Gradient Peak 6.1 mmHg MV Mean 1.9 mmHg MV Area cm COMMENTS: [employer] Truck Driver: Aidee WYLIEOE Policy Analyst: 3 Dr. Walsh TAPE# PACS DATE OF SERVICE: 02/14/2017 Adequate 2D echo, color flow, spectral Doppler, and M-mode. LVH is present. LV internal dimensions are normal. LV appears to be mildly globally hypo with reduced EF, estimated EF of 40%. 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 Peak gradient of 24 mmHg putting this in a probably mild range. Odhi-ib-mjuzojld AI is present as well. Left atrium is normal at 3.2 cm. Mitral valve is thickened. Moderate MR. Right-sided chambers were grossly normal. Ogwgx-rx-drvufq TR. RV systolic pressure is estimated greater than or equal to 54 mmHg via the continuity equation. ECHOCARDIOGRAM REPORT [id number] SCOTT MCKNIGHT Adrienne TRANSINT:[id number] Voice Confirmation ID: [id number] DOCUMENT ID: [id number] 02/21/2017 Edited to correct date of service, dmm. DAE DAVIS MD at 1337 CC: [id number] DICTATION DATE: 02/15/17 1329 SLOT FLOOR ATTENDANT: 02/15/17 1425 DIS IN 02/19/17 [facility] [address] [facility] [place] [address]
[2017-02-13 16:13] LABS: APPEARANCE CLEAR (CLEAR); BILIRUBIN NEGATIVE (NEGATIVE); COLOR YELLOW (YELLOW); GLUCOSE NEGATIVE (NEGATIVE); KETONE NEGATIVE (NEGATIVE); NITRITE NEGATIVE (NEGATIVE); PROTEIN 1+ mg/dL (NEGATIVE); UROBILINOGEN NORMAL (NORMAL)
[2017-02-13 16:14] LABS: AMORPHOUS SEDIMENT <1+ /lpf (NONE SEEN); BACTERIA FEW /hpf (NONE SEEN); EPITHELIAL CELLS 0-5 /hpf (0-5); HYALINE CAST OCC /lpf (NONE SEEN); MUCUS <1+ /lpf (NONE SEEN); RED CELLS - URINE 0-5 /hpf (0-5); WHITE CELLS - URINE 0-5 /hpf (0-5)
[2017-02-13 16:24] LABS: BASOPHILS 0.6 % (0-2); EOSINOPHILS 1.9 % (0-7); HEMATOCRIT 39.6 % (42.0-54.0); HEMOGLOBIN 13.5 g/dL (13.5-17.5); IMMATURE GRANULOCYTES 0.8 % (0-5); LYMPHOCYTES 37.2 % (15-50); MCH 33.4 pg (26.0-34.0); MCHC 34.1 g/dL (31.0-37.0); MEAN PLATELET VOLUME 10.9 fL (7.4-10.4); MONOCYTES 11.5 % (2-11); RBC 4.04 10x6/uL (4.20-6.10); WBC 5.2 10x3/uL (4.8-10.8)
[2017-02-13 16:29] LABS: PLATELET COUNT 152 10x3/uL (130-400)
[2017-02-13 16:56] LABS: ALBUMIN 3.1 g/dL (3.4-5.0); ALKALINE PHOSPHATASE 41 U/L (46-116); ALT (SGPT) 22 U/L (10-68); BILIRUBIN - TOTAL 0.33 mg/dL (0.2-1.3); CALC OSMOLALITY 287 mosm/kg (275-300); CALCIUM 8.7 mg/dL (8.5-10.1); CARBON DIOXIDE 26.8 mmol/L (21.0-32.0); CHLORIDE - SERUM 103 mmol/L (98-107); CREATININE - SERUM 1.2 mg/dL (0.6-1.3); GLUCOSE 90 mg/dL (74-106); POTASSIUM - SERUM 4.4 mmol/L (3.5-5.1); SODIUM 141 mmol/L (136-145); TROPONIN-I < 0.017 ng/mL (0.000-0.060); UREA NITROGEN 33 mg/dL (7-18); eGFR NON AFRICAN AMERICAN 61 mL/min (90-120)
[2017-02-14 00:38] VITALS: BMI 28.3
[2017-02-14 04:40] VITALS: BP 131/94
[2017-02-14 07:57] VITALS: BP 145/93
[2017-02-14 10:58] VITALS: Ht 170.2 cm; Wt 82.3 kg
[2017-02-14 11:19] VITALS: BP 158/72
[2017-02-14 15:54] VITALS: BP 155/089
[2017-02-14 21:44] VITALS: BP 135/80
[2017-02-15 01:02] VITALS: BP 150/94
[2017-02-15 04:47] VITALS: BP 137/81
[2017-02-15 06:13] LABS: HEMATOCRIT 40.4 % (42.0-54.0); MCH 33.5 pg (26.0-34.0); MCHC 34.7 g/dL (31.0-37.0); MCV 96.7 fL (80.0-100.0); MEAN PLATELET VOLUME 10.8 fL (7.4-10.4); PLATELET COUNT 191 10x3/uL (130-400); RBC 4.18 10x6/uL (4.20-6.10); RDW 15.9 % (11.5-14.5); WBC 7.6 10x3/uL (4.8-10.8)
[2017-02-15 06:45] LABS: ALBUMIN 3.1 g/dL (3.4-5.0); ANION GAP 17.8 mmol/L (8-16); BILIRUBIN - TOTAL 0.38 mg/dL (0.2-1.3); CALCIUM 9.3 mg/dL (8.5-10.1); CARBON DIOXIDE 25.5 mmol/L (21.0-32.0); POTASSIUM - SERUM 4.3 mmol/L (3.5-5.1); PROTEIN - SERUM 7.1 g/dL (6.4-8.2)
[2017-02-15 06:49] LABS: CREATININE - SERUM 1.8 mg/dL (0.6-1.3)
[2017-02-15 07:35] LABS: ANISOCYTOSIS OCC; EOSINOPHILS 1 % (0-7); LYMPHOCYTES 19 % (15-50); MONOCYTES 6 % (2-11); NEUTROPHILS 64 % (40-80); PLATELET ESTIMATE NORMAL
[2017-02-15 07:49] VITALS: BP 143/74
[2017-02-15 11:48] VITALS: BP 110/66
[2017-02-15 16:18] VITALS: BP 128/81
[2017-02-15 21:03] VITALS: BP 138/72
[2017-02-16 04:49] VITALS: BP 111/69
[2017-02-16 08:01] VITALS: BP 145/77
[2017-02-16 12:33] VITALS: BP 133/88
[2017-02-16 16:06] VITALS: BP 128/89
[2017-02-16 19:00] VITALS: BP 142/55
[2017-02-17 04:00] VITALS: BP 125/64
[2017-02-17 06:47] LABS: BASOPHILS 0.3 % (0-2); EOSINOPHILS 1.4 % (0-7); HEMATOCRIT 41.2 % (42.0-54.0); HEMOGLOBIN 14.2 g/dL (13.5-17.5); IMMATURE GRANULOCYTES 1.5 % (0-5); LYMPHOCYTES 32.9 % (15-50); MCH 33.3 pg (26.0-34.0); MCHC 34.5 g/dL (31.0-37.0); MCV 96.7 fL (80.0-100.0); MEAN PLATELET VOLUME 11.2 fL (7.4-10.4); MONOCYTES 10.7 % (2-11); NEUTROPHILS 53.2 % (40-80); PLATELET COUNT 215 10x3/uL (130-400); RBC 4.26 10x6/uL (4.20-6.10); RDW 15.7 % (11.5-14.5)
[2017-02-17 06:56] LABS: ANION GAP 11.6 mmol/L (8-16); CARBON DIOXIDE 29.6 mmol/L (21.0-32.0); CREATININE - SERUM 1.9 mg/dL (0.6-1.3); POTASSIUM - SERUM 3.2 mmol/L (3.5-5.1)
[2017-02-17 07:43] VITALS: BP 116/69
[2017-02-17 11:53] VITALS: BP 110/68
[2017-02-17 21:26] VITALS: BP 123/67
[2017-02-18 05:36] LABS: BASOPHILS 0.3 % (0-2); EOSINOPHILS 1.8 % (0-7); HEMATOCRIT 41.9 % (42.0-54.0); HEMOGLOBIN 14.3 g/dL (13.5-17.5); IMMATURE GRANULOCYTES 2.4 % (0-5); LYMPHOCYTES 30.9 % (15-50); MCH 33.4 pg (26.0-34.0); MCHC 34.1 g/dL (31.0-37.0); MCV 97.9 fL (80.0-100.0); MEAN PLATELET VOLUME 10.8 fL (7.4-10.4); MONOCYTES 10.4 % (2-11); NEUTROPHILS 54.2 % (40-80); PLATELET COUNT 231 10x3/uL (130-400); RBC 4.28 10x6/uL (4.20-6.10); RDW 15.9 % (11.5-14.5); WBC 8.7 10x3/uL (4.8-10.8)
[2017-02-18 05:49] LABS: ANION GAP 11.1 mmol/L (8-16); CALCIUM 9.5 mg/dL (8.5-10.1); CARBON DIOXIDE 30.7 mmol/L (21.0-32.0); CREATININE - SERUM 1.9 mg/dL (0.6-1.3)
[2017-02-18 05:51] LABS: POTASSIUM - SERUM 4.8 mmol/L (3.5-5.1)
[2017-02-18 08:22] VITALS: BP 107/76
[2017-02-18 12:55] VITALS: BP 129/92
[2017-02-18 16:25] VITALS: BP 124/73
[2017-02-18 21:27] VITALS: BP 163/73
[2017-02-19 01:46] VITALS: BP 134/80
[2017-02-19 05:40] VITALS: BP 163/73
[2017-02-19 08:49] VITALS: BP 153/65
[2017-02-19 12:52] VITALS: BP 114/73
== END 2017-02-19 13:09 | DRG 291 ==
LOC: D.ER 14:23 → D.M2 17:56
PROVIDERS: Internal Medicine Nephrology; Physician Assistant Medical
DX: I11.0 Hypertensive heart disease with heart failure (principal); J18.9 Pneumonia, unspecified organism; J96.91 Respiratory failure, unspecified with hypoxia; N17.9 Acute kidney failure, unspecified; J98.11 Atelectasis; I10 Essential (primary) hypertension; F01.50 Vascular dementia, unspecified severity, without behavioral disturbance, psychotic disturbance, mood disturbance, and anxiety; G20 Parkinson's disease; F02.80 Dementia in other diseases classified elsewhere, unspecified severity, without behavioral disturbance, psychotic disturbance, mood disturbance, and anxiety; I48.91 Unspecified atrial fibrillation; D64.9 Anemia, unspecified; E78.5 Hyperlipidemia, unspecified; Z95.0 Presence of cardiac pacemaker; I50.32 Chronic diastolic (congestive) heart failure

== ENCOUNTER 2018-01-12 23:49 | Inpatient (IN) | payer MEDICARE ==
[~2018-01-12] VITALS: Ht 170.2 cm; Wt 78.9 kg
--- NOTE | ~2018-01-12 | MORECARE ---
CASE MANAGEMENT DISCHARGE SUMMARY PATIENT: SCOTT MCKNIGHT UNIT: [id number] ADM DATE: 01/13/18 AGE: 87 : [birth year] SEX: M ROOM/BED: D.1210 AUTHOR: KAYCEE,DOC PHYSICIAN: REFERRING PHYSICIAN: ARUN SMYTH MD DATE OF SERVICE: 01/16/18 Discharge Plan Patient Name: SCOTT MCKNIGHT Facility: [facility]:[place] : 1930 Planned Disposition: Long-Term Facility Anticipated Discharge Date: Discharge Date: Expected LOS: Initial Reviewer: [email or web address] Initial Review Date: 01/13/2018 Generated: 01/16/18 5:25 pm Comments DCP- Discharge Planning Updated by [email or web address]: Leonie Veronica on 01/16/18 3:[address] CM received order for discharge planning as MD anticipates discharge back to [facility] tomorrow. CM met with patients spouse, Lilian Mcknight, about discharge planning. Mrs. Mcknight confirmed plan if for patient to return to [facility]. SAVANA signed. IMM explained and signed. CM called [facility]. Spoke with Usha about referral. Faxed requested records to facility. Awaiting determination. CM will continue to follow and assist as needed with discharge planning / needs. DCP- Discharge Planning Updated by [email or web address]: Penelope Kaplan on 01/15/18 4:[address] Patient Name: SCOTT MCKNIGHT Admission Status: ER Accout number: [id number] Admission Date: 01-13-2018 : 1930 Admission Diagnosis:HYPEROSMOLALITY AND HYPERNATREMIA Attending: ARUN SMYTH Current LOS: 2 Anticipated DC Date: Planned Disposition: Long-Term Facility Primary Insurance: MEDICARE A & B Discharge Planning Comments: CM attempted to meet with patient. He is currently non-verbal and difficult to arouse verbally. Patient is a resident at [facility]. . CM will continue to follow and assist with discharge planning / needs. Manager Business Management: Penelope Kaplan DCPIA - Discharge Planning Initial Assessment Updated by [email or web address]: Penelope Kaplan on 01/15/18 5:44 pm * Is the patient Alert and Oriented? No * PCP [facility] [place] * Pharmacy [facility] [place] * Preadmission Environment [facility] * Facility Name [facility] Last DP export: 01/15/18 5:00 p Patient Name: SCOTT MCKNIGHT Page [id number] at 1625 All edits/amendments must be made on the electronic document DICTATION DATE: 01/16/181624 WARDROBE MANAGER: DENISE 01/16/181624 RPT#: [id number] DC DATE: STATUS: ADM IN [facility] [address] [place] [address] END OF REPORT
--- NOTE | ~2018-01-12 | MORECARE ---
CASE MANAGEMENT DISCHARGE SUMMARY PATIENT: SCOTT MCKNIGHT UNIT: [id number] ADM DATE: 01/13/18 AGE: 87 : 29 SEX: M ROOM/BED: D.1210 AUTHOR: BETHANY BENOIT PHYSICIAN: REFERRING PHYSICIAN: ARUN SMYTH MD DATE OF SERVICE: 01/15/18 Discharge Plan Patient Name: SCOTT MCKNIGHT Facility: [facility]:[place] : 1930 Planned Disposition: Chcf Facility Anticipated Discharge Date: Discharge Date: Expected LOS: Initial Reviewer: [id number] Initial Review Date: 01/13/2018 Generated: 01/15/18 7:00 pm Comments DCP- Discharge Planning Updated by [email or web address]: Penelope Kaplan on 01/15/18 4:[address] Patient Name: SCOTT MCKNIGHT Admission Status: ER Accout number: [id number] Admission Date: 01-13-2018 : 1930 Admission Diagnosis:HYPEROSMOLALITY AND HYPERNATREMIA Attending: ARUN SMYTH Current LOS: 2 Anticipated DC Date: Planned Disposition: Chcf Facility Primary Insurance: MEDICARE A & B Discharge Planning Comments: CM attempted to meet with patient. He is currently non-verbal and difficult to arouse verbally. Patient is a resident at [facility] [place]. 2-1999. CM will continue to follow and assist with discharge planning / needs. Political Cartoonist: Penelope Kaplan DCPIA - Discharge Planning Initial Assessment Updated by [id number]: Penelope Kaplan on 01/15/18 5:44 pm * Is the patient Alert and Oriented? No * PCP [facility] * Pharmacy [facility] * Preadmission Environment [facility] * Facility Name [facility] Last DP export: 01/15/18 4:47 p Patient Name: SCOTT MCKNIGHT Page 01528 at 1801 All edits/amendments must be made on the electronic document DICTATION DATE: 01/15/18 1800 LIABILITY CLAIMS REPRESENTATIVE: DENISE 01/15/18 1800 RPT#: [id number] DC DATE: STATUS: ADM IN [facility] [address] [place] [address] END OF REPORT
--- NOTE | ~2018-01-12 | MORECARE ---
CASE MANAGEMENT DISCHARGE SUMMARY PATIENT: SCOTT MCKNIGHT UNIT: [id number] ADM DATE: 01/13/18 AGE: 87 : 29 SEX: M ROOM/BED: D.1210 AUTHOR: KAYCEE,DOC PHYSICIAN: REFERRING PHYSICIAN: ARUN SMYTH MD DATE OF SERVICE: 01/17/18 Discharge Plan Patient Name: SCOTT MCKNIGHT Facility: [facility]:[place] : 1930 Planned Disposition: Shelter Facility Anticipated Discharge Date: Discharge Date: Expected LOS: Initial Reviewer: [id number] Initial Review Date: 01/13/2018 Generated: 01/17/18 11:11 am Comments DCP- Discharge Planning Updated by [email or web address]: Leonie Veronica on 01/17/18 9:[address] CM received call from [facility] with [facility] stating they have accepted patient and wanted to make sure CM arranged ambulance transport for patient to return to facility. CM notified patient's of acceptance to [facility] termite helper care (Medicaid bed). Mrs. Mcknight choice [facility] to provide hospice care at [facility]. CM called [facility] and spoke with Marie about referral. Faxed records as requested to [phone]. Hospice will evaluate patient tomorrow at [facility]. CM will continue to follow and assist as needed with discharge planning / needs. DCP- Discharge Planning Updated by [id number]: Leonie Veronica on 01/16/18 3:[address] CM received order for discharge planning as MD anticipates discharge back to [facility]-Way tomorrow. CM met with patients spouse, Lilian cMknight, about discharge planning. Mrs. Mcknight confirmed plan if for patient to return to [facility]. SAVANA signed. IMM explained and signed. CM called [facility]. Spoke with Usha about referral. Faxed requested records to facility. Awaiting determination. CM will continue to follow and assist as needed with discharge planning / needs. DCP- Discharge Planning Updated by [email or web address]: Penelope Kaplan on 01/15/18 4:[address] Patient Name: SCOTT MCKNIGHT Admission Status: ER Accout number: [id number] Admission Date: 01-13-2018 : 1930 Admission Diagnosis:HYPEROSMOLALITY AND HYPERNATREMIA Attending: ARUN SMYTH Current LOS: 2 Anticipated DC Date: Planned Disposition: Shelter Facility Primary Insurance: MEDICARE A & B Discharge Planning Comments: CM attempted to meet with patient. He is currently non-verbal and difficult to arouse verbally. Patient is a resident at [facility] [place]. . CM will continue to follow and assist with discharge planning / needs. Weatherization Administrator: Penelope WISEMAN - Discharge Planning Initial Assessment Updated by [email or web address]: Penelope Kaplan on 01/15/18 5:44 pm * Is the patient Alert and Oriented? No * PCP [facility] * Pharmacy [facility] * Preadmission Environment [facility]Way * Facility Name [facility] Coverage Notice Reviewer: [id number] Veronica Notice Issued Date-Time: 01/16/2018 13:47 Notice Type: IM Discharge Notice Notice Delivered To: Family Member Relationship to Patient: Spouse Collar Setter Name: Lilian Mcknight Delivery Method: HAND - Hand Delivered Lorena Days: Prior Verbal Notification: Recipient Understood Notice: Yes Recipient Signature: Yes Med Rec Note Co-signed by Attending: Coverage Notice Comment: Reviewer: WILLIS Veronica Notice Issued Date-Time: 01/16/2018 13:47 Notice Type: Patient Choice Letter Notice Delivered To: Family Member Relationship to Patient: Spouse Collar Setter Name: Lilian Mcknight Delivery Method: HAND - Hand Delivered Lorena Days: Prior Verbal Notification: Recipient Understood Notice: Yes Recipient Signature: Yes Med Rec Note Co-signed by Attending: Coverage Notice Comment: Last DP export: 01/16/18 3:37 p Patient Name: SCOTT MCKNIGHT Page 35509 at 1011 All edits/amendments must be made on the electronic document DICTATION DATE: 01/17/18 1010 OVERAGE SHORTAGE AND DAMAGE CLERK: DENISE 01/17/18 1010 RPT#: [id number] DC DATE: STATUS: ADM IN [facility] [address] [place] [address] END OF REPORT
--- NOTE | ~2018-01-12 | MORECARE ---
CASE MANAGEMENT DISCHARGE SUMMARY PATIENT: SCOTT MCKNIGHT UNIT: [id number] ADM DATE: 01/13/18 AGE: 87 : 29 SEX: M ROOM/BED: D.1210 AUTHOR: KAYCEEDOC PHYSICIAN: REFERRING PHYSICIAN: ARUN SMYTH MD DATE OF SERVICE: 01/17/18 Discharge Plan Patient Name: SCOTT MCKNIGHT Facility: [facility]:[place] : 1930 Planned Disposition: Snf Facility Anticipated Discharge Date: Discharge Date: Expected LOS: Initial Reviewer: [id number] Initial Review Date: 01/13/2018 Generated: 01/17/18 1:29 pm Comments DCP- Discharge Planning Updated by [email or web address]: Leonie Veronica on 01/17/18 9:[address] CM received call from [facility] with [facility] stating they have accepted patient and wanted to make sure CM arranged ambulance transport for patient to return to facility. CM notified patient's of acceptance to [facility] half-way care (Medicaid bed). Mrs. Mcknight choice [facility] to provide hospice care at [facility]. CM called [facility] and spoke with Marie about referral. Faxed records as requested to [phone]. Hospice will evaluate patient tomorrow at [facility]. CM will continue to follow and assist as needed with discharge planning / needs. DCP- Discharge Planning Updated by [email or web address]: Leonie Veronica on 01/16/18 3:[address] CM received order for discharge planning as MD anticipates discharge back to [facility] tomorrow. CM met with patients spouse, Lilian Mcknight, about discharge planning. Mrs. Mcknight confirmed plan if for patient to return to [facility] intermediate. SAVANA signed. IMM explained and signed. CM called [facility]. Spoke with Usha about referral. Faxed requested records to facility. Awaiting determination. CM will continue to follow and assist as needed with discharge planning / needs. DCP- Discharge Planning Updated by [email or web address]: Penelope Kaplan on 01/15/18 4:[address] Patient Name: SCOTT MCKNIGHT Admission Status: ER Accout number: [id number] Admission Date: 01-13-2018 : 1930 Admission Diagnosis:HYPEROSMOLALITY AND HYPERNATREMIA Attending: ARUN SMYTH Current LOS: 2 Anticipated DC Date: Planned Disposition: Snf Facility Primary Insurance: MEDICARE A & B Discharge Planning Comments: CM attempted to meet with patient. He is currently non-verbal and difficult to arouse verbally. Patient is a resident at [facility] [place]. . CM will continue to follow and assist with discharge planning / needs. Biological Inspector: Penelope WISEMAN - Discharge Planning Initial Assessment Updated by [email or web address]: Penelope Kaplan on 01/15/18 5:44 pm * Is the patient Alert and Oriented? No * PCP [facility] * Pharmacy [facility] * Preadmission Environment [facility] * Facility Name [facility] External Providers External Provider: [facility]provides [facility] Next Contact Date: Service Request Date: Service Type: Resolution: Reviewer: Comments: Coverage Notice Reviewer: [id number] Veronica Notice Issued Date-Time: 01/16/2018 13:47 Notice Type: IM Discharge Notice Notice Delivered To: Family Member Relationship to Patient: Spouse Durability Engineer Name: Lilian Mcknight Delivery Method: HAND - Hand Delivered Lorena Days: Prior Verbal Notification: Recipient Understood Notice: Yes Recipient Signature: Yes Med Rec Note Co-signed by Attending: Coverage Notice Comment: Reviewer: [id number] Veronica Notice Issued Date-Time: 01/16/2018 13:47 Notice Type: Patient Choice Letter Notice Delivered To: Family Member Relationship to Patient: Spouse Durability Engineer Name: Lilian Mcknight Delivery Method: HAND - Hand Delivered Lorena Days: Prior Verbal Notification: Recipient Understood Notice: Yes Recipient Signature: Yes Med Rec Note Co-signed by Attending: Coverage Notice Comment: Last DP export: 01/17/18 9:11 a Patient Name: SCOTT MCKNIGHT Page 98104 at 1229 All edits/amendments must be made on the electronic document DICTATION DATE: 01/17/18 1229 SEMICONDUCTOR TESTING GROUP LEADER: DENISE 01/17/18 1229 RPT#: [id number] RI DATE: STATUS: ADM IN [facility] [address] [place] [address] END OF REPORT
--- NOTE | ~2018-01-12 | MORECARE ---
CASE MANAGEMENT DISCHARGE SUMMARY PATIENT: SCOTT MCKNIGHT UNIT: [id number] ADM DATE: 01/13/18 AGE: 87 : 29 SEX: M ROOM/BED: D.1210 AUTHOR: KAYCEE,DOC PHYSICIAN: REFERRING PHYSICIAN: ARUN SMYTH MD DATE OF SERVICE: 01/16/18 Discharge Plan Patient Name: SCOTT MCKNIGHT Facility: [facility]:[place] : 1930 Planned Disposition: Chcf Facility Anticipated Discharge Date: Discharge Date: Expected LOS: Initial Reviewer: [email or web address] Initial Review Date: 01/13/2018 Generated: 01/16/18 5:36 pm Comments DCP- Discharge Planning Updated by [email or web address]: Leonie Veronica on 01/16/18 3:[address] CM received order for discharge planning as MD anticipates discharge back to Snf tomorrow. CM met with patients spouse, Lilian Mcknight, about discharge planning. Mrs. Mcknight confirmed plan if for patient to return to [facility]. SAVANA signed. IMM explained and signed. CM called [facility]. Spoke with Usha about referral. Faxed requested records to facility. Awaiting determination. CM will continue to follow and assist as needed with discharge planning / needs. DCP- Discharge Planning Updated by [email or web address]: Penelope Kaplan on 01/15/18 4:[address] Patient Name: SCOTT MCKNIGHT Admission Status: ER Accout number: [id number] Admission Date: 01-13-2018 : 1930 Admission Diagnosis:HYPEROSMOLALITY AND HYPERNATREMIA Attending: ARUN SMYTH Current LOS: 2 Anticipated DC Date: Planned Disposition: Chcf Facility Primary Insurance: MEDICARE A & B Discharge Planning Comments: CM attempted to meet with patient. He is currently non-verbal and difficult to arouse verbally. Patient is a resident at [facility] [place]. . CM will continue to follow and assist with discharge planning / needs. Dive Superintendent: Penelope Kaplan DCPIA - Discharge Planning Initial Assessment Updated by [email or web address]: Penelope Kaplan on 01/15/18 5:44 pm * Is the patient Alert and Oriented? No * PCP [facility] * Pharmacy [facility] * Preadmission Environment [facility] * Facility Name [facility] External [facility] Next Contact Date: Service Request Date: Service Type: Resolution: Reviewer: Comments: Last DP export: 01/16/18 3:25 p Patient Name: SCOTT MCKNIGHT Page 72123 at 1637 All edits/amendments must be made on the electronic document DICTATION DATE: 01/16/18 163 STATISTICAL SECRETARY: DENISE 01/16/18 1636 RPT#: [id number] MT DATE: STATUS: ADM IN [facility] [address] [place] [address] END OF REPORT
--- NOTE | ~2018-01-12 | MORECARE ---
CASE MANAGEMENT DISCHARGE SUMMARY PATIENT: SCOTT MCKNIGHT UNIT: [id number] ADM DATE: 01/13/18 AGE: 87 : 29 SEX: M ROOM/BED: D.1210 AUTHOR: BETHANY BENOIT PHYSICIAN: REFERRING PHYSICIAN: ARUN SMYTH MD DATE OF SERVICE: 01/15/18 Discharge Plan Patient Name: SCOTT MCKNIGHT [facility] [facility] 1930 [facility] Facility Anticipated Discharge Date: Discharge Date: Expected LOS: Initial Reviewer: [id number] Initial Review Date: 01/13/2018 Generated: 01/15/18 6:47 pm DCPIA - Discharge Planning Initial Assessment Updated by [email or web address]: Penelope Kaplan on 01/15/18 5:44 pm * Is the patient Alert and Oriented? No * PCP [facility] * Pharmacy [facility] * Preadmission Environment Sales Route Driver Helper Custodial * Facility Name [facility] Patient Name: SCOTT MCKNIGHT Page 07013 at 1747 All edits/amendments must be made on the electronic document DICTATION DATE: 01/15/181745 SALES EXHIBITOR: DENISE 01/15/181745 RPT#: [id number] DC DATE: STATUS: ADM IN [facility] [address] [place] [address] END OF REPORT
--- NOTE | ~2018-01-12 | MORECARE ---
CASE MANAGEMENT DISCHARGE SUMMARY PATIENT: SCOTT MCKNIGHT UNIT: [id number] ADM DATE: 01/13/18 AGE: 87 : 29 SEX: M ROOM/BED: D.1210 AUTHOR: KAYCEE,DOC PHYSICIAN: REFERRING PHYSICIAN: ARUN SMYTH MD DATE OF SERVICE: 01/18/18 Discharge Plan Patient Name: SCOTT MCKNIGHT Facility: [facility]:[place] : 1930 Planned Disposition: Usp Facility Anticipated Discharge Date: Discharge Date: 01/17/2018 Expected LOS: 0 Initial Reviewer: [id number] Initial Review Date: 01/13/2018 Generated: 01/18/18 9:19 am Comments DCP- Discharge Planning Updated by [email or web address]: Leonie Veronica on 01/17/18 9:[address] CM received call from [facility] stating they have accepted patient and wanted to make sure CM arranged ambulance transport for patient to return to facility. CM notified patient's of acceptance to [facility] heel buffer care (Medicaid bed). Mrs. Mcknight choice [facility] to provide hospice care at [facility]. CM called [facility] and spoke with Marie about referral. Faxed records as requested to [phone]. Hospice will evaluate patient tomorrow at [facility]. CM will continue to follow and assist as needed with discharge planning / needs. DCP- Discharge Planning Updated by [email or web address]: Leonie Veronica on 01/16/18 3:[address] CM received order for discharge planning as MD [facility]. CM met with patients spouse, Lilian Mcknight, about discharge planning. Mrs. Mcknight confirmed plan if for patient to return to [facility] group home. SAVANA signed. IMM explained and signed. CM called [facility]. Spoke with Usha about referral. Faxed requested records to facility. Awaiting determination. CM will continue to follow and assist as needed with discharge planning / needs. DCP- Discharge Planning Updated by [email or web address]: Penelope Kaplan on 01/15/18 4:[address] Patient Name: SCOTT MCKNIGHT Admission Status: ER Accout number: [id number] Admission Date: 01-13-2018 : 1930 Admission Diagnosis:HYPEROSMOLALITY AND HYPERNATREMIA Attending: ARUN SMYTH Current LOS: 2 Anticipated DC Date: Planned Disposition: Usp Facility Primary Insurance: MEDICARE A & B Discharge Planning Comments: CM attempted to meet with patient. He is currently non-verbal and difficult to arouse verbally. Patient is a resident at [facility] [place]. . CM will continue to follow and assist with discharge planning / needs. Puzzle Assembler: Penelope Kaplan DCPIA - Discharge Planning Initial Assessment Updated by [email or web address]: Penelope Kaplan on 01/15/18 5:44 pm * Is the patient Alert and Oriented? No * PCP [facility] * Pharmacy [facility] * Preadmission Environment [facility] * Facility Name [facility] Coverage Notice Reviewer: [id number] Veronica Notice Issued Date-Time: 01/16/2018 13:47 Notice Type: IM Discharge Notice Notice Delivered To: Family Member Relationship to Patient: Spouse Director Of Communications Name: Lilian Mcknight Delivery Method: HAND - Hand Delivered Lorena Days: Prior Verbal Notification: Recipient Understood Notice: Yes Recipient Signature: Yes Med Rec Note Co-signed by Attending: Coverage Notice Comment: Reviewer: [id number] Veronica Notice Issued Date-Time: 01/16/2018 13:47 Notice Type: Patient Choice Letter Notice Delivered To: Family Member Relationship to Patient: Spouse Director Of Communications Name: Lilian Mcknight Delivery Method: HAND - Hand Delivered Lorena Days: Prior Verbal Notification: Recipient Understood Notice: Yes Recipient Signature: Yes Med Rec Note Co-signed by Attending: Coverage Notice Comment: Last DP export: 01/17/18 11:29 a Patient Name: SCOTT MCKNIGHT Page 09534 at 0819 All edits/amendments must be made on the electronic document DICTATION DATE: 01/18/18817 BATCH MIXER: DENISE 01/18/18817 RPT#: [id number] DC DATE:01/17/18 STATUS: DIS IN [place] [id number] [place] [address] END OF REPORT
[2018-01-13] MEDS ORDERED: LASIX20 MG PO (00:04)
[2018-01-13] MEDS ORDERED: LASIX40 MG PO (00:05)
[2018-01-13] MEDS ORDERED: POTASSIUM CHLO20 MEQ PO (00:06)
[2018-01-13] MEDS ORDERED: REMERON15 MG PO (00:06)
[2018-01-13] MEDS ORDERED: MULTIVITAMIN LIQUID (00:06)
[2018-01-13] MEDS ORDERED: ULTRAM50 MG PO (00:08)
[2018-01-13] MEDS ORDERED: DESERYL50 M2 PO (00:08)
[2018-01-13] MEDS ORDERED: ASCORBIC ACID500 MG PO (00:08)
[2018-01-13 01:01] LABS: BASOPHILS 0.4 % (0-2); EOSINOPHILS 2.6 % (0-7); HEMATOCRIT 41.9 % (42.0-54.0); HEMOGLOBIN 13.3 g/dL (13.5-17.5); IMMATURE GRANULOCYTES 0.2 % (0-5); LYMPHOCYTES 35.5 % (15-50); MCH 30.7 pg (26.0-34.0); MCHC 31.7 g/dL (31.0-37.0); MCV 96.8 fL (80.0-100.0); MEAN PLATELET VOLUME 12.5 fL (7.4-10.4); MONOCYTES 6.2 % (2-11); NEUTROPHILS 55.1 % (40-80); RBC 4.33 10x6/uL (4.20-6.10); RDW 15.6 % (11.5-14.5); WBC 8.1 10x3/uL (4.8-10.8)
[2018-01-13 01:08] LABS: PLATELET COUNT 147 10x3/uL (130-400)
[2018-01-13 01:11] LABS: ALBUMIN 2.8 g/dL (3.4-5.0); BILIRUBIN - TOTAL 0.57 mg/dL (0.2-1.3); CALCIUM 9.1 mg/dL (8.5-10.1); CARBON DIOXIDE 29.7 mmol/L (21.0-32.0); CREATININE - SERUM 1.6 mg/dL (0.6-1.3); POTASSIUM - SERUM 3.8 mmol/L (3.5-5.1); PROTEIN - SERUM 7.8 g/dL (6.4-8.2)
[2018-01-13 01:12] LABS: ANION GAP 12.1 mmol/L (8-16)
[2018-01-13 02:21] VITALS: BP 115/58
[2018-01-13 04:00] VITALS: BP 98/47
[2018-01-13 04:27] VITALS: BMI 26.8
[2018-01-13] MEDS ORDERED: ACETAMINOPHEN325 MG PO (06:23)
[2018-01-13] MEDS ORDERED: SENNA LAXATIVE8.6 MG PO (06:28)
[2018-01-13 07:55] VITALS: BP 138/60
[2018-01-13 12:59] VITALS: BP 124/84
[2018-01-13 16:49] VITALS: BP 121/66
[2018-01-13 21:34] VITALS: BP 101/33
[2018-01-14 05:00] VITALS: BP 106/33
[2018-01-14 06:15] LABS: BASOPHILS 0.4 % (0-2); EOSINOPHILS 2.5 % (0-7); HEMATOCRIT 39.1 % (42.0-54.0); IMMATURE GRANULOCYTES 0.2 % (0-5); LYMPHOCYTES 43.9 % (15-50); MCH 29.8 pg (26.0-34.0); MCHC 30.7 g/dL (31.0-37.0); MONOCYTES 6.7 % (2-11); NEUTROPHILS 46.3 % (40-80); PLATELET COUNT 130 10x3/uL (130-400); RBC 4.03 10x6/uL (4.20-6.10); RDW 15.3 % (11.5-14.5)
[2018-01-14 06:50] LABS: WBC 5.5 10x3/uL (4.8-10.8)
[2018-01-14 06:56] LABS: ALBUMIN 2.3 g/dL (3.4-5.0); BILIRUBIN - TOTAL 0.88 mg/dL (0.2-1.3); CALCIUM 8.2 mg/dL (8.5-10.1); CARBON DIOXIDE 26.6 mmol/L (21.0-32.0); CREATININE - SERUM 1.4 mg/dL (0.6-1.3); MAGNESIUM - SERUM 2.4 mg/dL (1.8-2.4); POTASSIUM - SERUM 3.8 mmol/L (3.5-5.1); PROTEIN - SERUM 6.2 g/dL (6.4-8.2)
[2018-01-14 06:58] LABS: ANION GAP 15.2 mmol/L (8-16)
[2018-01-14 08:34] VITALS: BP 120/82
[2018-01-14 12:05] VITALS: BP 129/59
[2018-01-14 14:21] VITALS: Ht 170.2 cm; Wt 78.9 kg
[2018-01-14 19:00] VITALS: BP 125/56
[2018-01-15] VITALS (7 sets, daily range): BP systolic 125–148; BP diastolic 53–88
[2018-01-15 06:55] LABS: BASOPHILS 0.6 % (0-2); EOSINOPHILS 3.2 % (0-7); HEMATOCRIT 40.9 % (42.0-54.0); HEMOGLOBIN 12.8 g/dL (13.5-17.5); IMMATURE GRANULOCYTES 0.2 % (0-5); LYMPHOCYTES 42.1 % (15-50); MCH 30.1 pg (26.0-34.0); MCHC 31.3 g/dL (31.0-37.0); MCV 96.2 fL (80.0-100.0); MEAN PLATELET VOLUME 13.5 fL (7.4-10.4); MONOCYTES 7.6 % (2-11); NEUTROPHILS 46.3 % (40-80); PLATELET COUNT 119 10x3/uL (130-400); RBC 4.25 10x6/uL (4.20-6.10); WBC 5.3 10x3/uL (4.8-10.8)
[2018-01-15 07:42] LABS: ALBUMIN 2.4 g/dL (3.4-5.0); BILIRUBIN - TOTAL 1.09 mg/dL (0.2-1.3); CALCIUM 8.3 mg/dL (8.5-10.1); CARBON DIOXIDE 23.6 mmol/L (21.0-32.0); CREATININE - SERUM 1.3 mg/dL (0.6-1.3); MAGNESIUM - SERUM 2.3 mg/dL (1.8-2.4); POTASSIUM - SERUM 3.6 mmol/L (3.5-5.1); PROTEIN - SERUM 6.8 g/dL (6.4-8.2)
[2018-01-16 01:06] VITALS: BP 145/59
[2018-01-16 03:29] VITALS: BP 152/89
[2018-01-16 06:59] LABS: ALBUMIN 2.2 g/dL (3.4-5.0); BASOPHILS 0.4 % (0-2); BILIRUBIN - TOTAL 1.08 mg/dL (0.2-1.3); CARBON DIOXIDE 22.7 mmol/L (21.0-32.0); CREATININE - SERUM 1.1 mg/dL (0.6-1.3); EOSINOPHILS 2.4 % (0-7); HEMATOCRIT 37.5 % (42.0-54.0); HEMOGLOBIN 11.7 g/dL (13.5-17.5); IMMATURE GRANULOCYTES 0.2 % (0-5); LYMPHOCYTES 40.8 % (15-50); MAGNESIUM - SERUM 2.1 mg/dL (1.8-2.4); MCH 30.2 pg (26.0-34.0); MCHC 31.2 g/dL (31.0-37.0); MCV 96.6 fL (80.0-100.0); MONOCYTES 7.8 % (2-11); NEUTROPHILS 48.4 % (40-80); PLATELET COUNT 134 10x3/uL (130-400); RBC 3.88 10x6/uL (4.20-6.10); WBC 5.4 10x3/uL (4.8-10.8)
[2018-01-16 07:09] LABS: ANION GAP 17.7 mmol/L (8-16); POTASSIUM - SERUM 3.4 mmol/L (3.5-5.1)
[2018-01-16 08:11] VITALS: BP 125/59
[2018-01-16 11:30] VITALS: BP 113/49
[2018-01-16 15:35] VITALS: BP 116/46
[2018-01-16 20:14] VITALS: BP 115/67
[2018-01-17] VITALS: BP 120/51
[2018-01-17 04:00] VITALS: BP 111/48
[2018-01-17 06:15] LABS: BASOPHILS 0.2 % (0-2); EOSINOPHILS 3.2 % (0-7); HEMATOCRIT 37.5 % (42.0-54.0); HEMOGLOBIN 12.4 g/dL (13.5-17.5); IMMATURE GRANULOCYTES 0.6 % (0-5); LYMPHOCYTES 45.5 % (15-50); MCH 30.4 pg (26.0-34.0); MCHC 33.1 g/dL (31.0-37.0); MEAN PLATELET VOLUME 13.9 fL (7.4-10.4); MONOCYTES 8.1 % (2-11); NEUTROPHILS 42.4 % (40-80); RBC 4.08 10x6/uL (4.20-6.10); RDW 14.6 % (11.5-14.5); WBC 5.3 10x3/uL (4.8-10.8)
[2018-01-17 06:30] LABS: MCV 91.9 fL (80.0-100.0); PLATELET COUNT 98 10x3/uL (130-400)
[2018-01-17 06:32] LABS: ALBUMIN 2.2 g/dL (3.4-5.0); ANION GAP 11.4 mmol/L (8-16); BILIRUBIN - TOTAL 1.11 mg/dL (0.2-1.3); CARBON DIOXIDE 24.6 mmol/L (21.0-32.0); CREATININE - SERUM 1.1 mg/dL (0.6-1.3); PROTEIN - SERUM 6.5 g/dL (6.4-8.2)
[2018-01-17 08:05] VITALS: BP 111/74
[2018-01-17 10:38] VITALS: BP 100/61
== END 2018-01-17 15:47 | DRG 640 ==
LOC: D.ER 23:49 → D.M3 01-13 02:38
PROVIDERS: Family Medicine
DX: E87.0 Hyperosmolality and hypernatremia (principal); G93.41 Metabolic encephalopathy; I50.22 Chronic systolic (congestive) heart failure; N17.9 Acute kidney failure, unspecified; E44.0 Moderate protein-calorie malnutrition; I11.0 Hypertensive heart disease with heart failure; E87.8 Other disorders of electrolyte and fluid balance, not elsewhere classified; D64.9 Anemia, unspecified; I08.3 Combined rheumatic disorders of mitral, aortic and tricuspid valves; E78.5 Hyperlipidemia, unspecified; G20 Parkinson's disease; F02.80 Dementia in other diseases classified elsewhere, unspecified severity, without behavioral disturbance, psychotic disturbance, mood disturbance, and anxiety; F01.50 Vascular dementia, unspecified severity, without behavioral disturbance, psychotic disturbance, mood disturbance, and anxiety; Z95.0 Presence of cardiac pacemaker; I48.91 Unspecified atrial fibrillation; Z68.27 Body mass index [BMI] 27.0-27.9, adult